=== PATIENT | female | born 1980 | race Caucasian/White ===

== ENCOUNTER 2023-02-15 14:09 | Emergency (ER) | payer OTHER, SELFPAY ==
[2023-02-15] VITALS (12 sets, daily range): BP systolic 124–158; BP diastolic 82–105; PULSE 69–86; RESP 13–22; TEMP 36.6; O2SAT 97–100
--- NOTE | ~2023-02-15 | CT_ITS ---
EXAMINATION: CT brain wo con DATE: 02/15/2023 15:39 INDICATION: seizure . TECHNIQUE: Computed tomography (CT) of the head was performed without intravenous contrast. The mA wa s adjusted according to patient size. Iterative reconstruction technique was employed. The dose-lengt h product was 605.33 mGy-cm. COMPARISON: None. FINDINGS: No acute intracranial hemorrhage or extra-axial fluid collection. No hydrocephalus, mass, or herniation. No acute ischemic infarct. Unremarkable dural venous sinus attenuation. No acute osseous abnormality. Retention cyst or polyp in the right anterior ethmoid air cells, small focus of aerated secretions in the left anterior ethmoid air cells, the remaining aerated spaces are clear. IMPRESSION: No acute intracranial process. Reviewed, dictated and finalized at location K.
[2023-02-15 15:33] LABS: Basophils Percent Auto 0.2 % (0.2-1.2); Eosinophils Percent Auto 0.1 % (0-4.4); Hematocrit 38.4 % (37.0-47.0); Hemoglobin 13.2 g/dL (12.0-15.0); Immature Granulocyte Absolute 0.03 K/mm3 (0.00-0.031); Immature Granulocyte Percent A 0.3 % (0-0.5); Lymphocytes Absolute Auto 0.62 K/mm3 (0.9-3.2); Lymphocytes Percent Auto 6.3 % (18.3-44.2); Mean Corpuscular HGB Conc 34.4 g/dl (32-36); Mean Corpuscular Hemoglobin 36.1 pg (26-34); Mean Corpuscular Volume 104.9 fl (80-100); Monocytes Absolute Auto 0.4 K/mm3 (0.1-0.6); Monocytes Percent Auto 4.3 % (2.6-8.5); Neutrophils Absolute Auto 8.7 K/mm3 (1.3-6.7); Neutrophils Percent Auto 88.8 % (45.5-73.1); Platelet Count Result 121 k/mm3 (150-375); Red Blood Count 3.66 M/mm3 (4.2-5.4); Red Cell Distribution Width 12.8 % (11.5-14.5); White Blood Count 9.8 K/mm3 (4.5-10.0)
[2023-02-15 15:44] LABS: Alanine Aminotransferase 185 U/L (6-35); Albumin Level 4.8 g/dL (3.5-5.1); Alkaline Phosphatase 83 U/L (38-126); Anion Gap 10 mmol/L (8-16); Aspartate Amino Transferase 257 U/L (14-36); Bilirubin,Total 1.1 mg/dL (0.2-1.3); Blood Urea Nitrogen 11 mg/dL (7-17); Calcium 9.1 mg/dL (8.4-10.2); Carbon Dioxide 24 mmol/L (22-30); Chloride 101 mmol/L (98-107); Estimated CRCL calculation 108 ml/min; Estimated Glomerular Filt Rate > 60; Glucose 113 mg/dL (65-110); Potassium 3.7 mmol/L (3.4-5.0); Sodium 135 mmol/L (137-145)
[2023-02-15] MEDS: ONDANSETRON INJ 4 MG/2 ML VIAL IV PUSH (16:04)
--- NOTE | 2023-02-15 16:29 | ED.GENADULT ---
HPI - General Adult General Chief complaint: Seizure Stated complaint: Seizure Time Seen by Provider: 02/15/23 15:15 History of Present Illness HPI narrative: 42-year-old female presenting to the emergency department for evaluation of suspected seizure today. Patient states while she was riding in the car with her and the states that she had a 3 to 4-minute seizure with tonic-clonic activity. Patient does describe having a postictal period after the seizure during which she was confused. Patient denies any injury denies biting her tongue denies any loss of bowel or bladder control. Patient does report having emesis after the seizure and does complain of some nausea at this time. Patient reports she did have a seizure back in October on a plane flight back from [place]. Patient did have an outpatient EEG after that seizure and the EEG showed no epileptic activity. Patient did not have follow-up with neurology after that EEG. Patient reports he has been eating and drinking well, denies any depression. Denies any new medications. Related Data Allergies Allergy/AdvReac Type Severity Reaction Status Date / Time Penicillins Allergy Hives Verified 02/15/23 14:10 Review of Systems Review of Systems: All systems reviewed & are unremarkable except as noted in HPI and below Exam Narrative: APPEARANCE: Well appearing, no pain, no distress, well-nourished. HEAD: normocephalic, atraumatic. EYES: PERRLA/EOMI, conjunctivae clear. NOSE: Normal no drainage EARS:TMS clear with good light reflex. THROAT: Pharynx clear, no exudate. NECK: Supple. No adenopathy, no masses. RESPIRATORY: Airway patent, respirations nonlabored. Clear to auscultation bilaterally, no rales, rhonchi, wheezing. CARDIOVASCULAR: Regular rate and rhythm without murmurs rubs or gallops. ABDOMINAL: Soft, nontender, nondistended, normal bowel sounds MUSCULOSKELETAL: Moves all extremities. Strength/ROM intact, No edema, No calf tenderness. NEURO: Alert. Cranial nerves II through XII intact. Grossly intact SKIN: Warm, dry. Normal Color Course Course Emergency Course: 42-year-old female presented to ED for a suspected second seizure. Patient is afebrile with no leukocytosis. Patient's hemoglobin is within normal limits. Patient's CMP is also within normal limits. Patient does have minor elevation of AST and ALT. Patient's head CT was negative. Case was discussed with Dr. Андрей castro for neurology and she was comfortable with the plan for starting the patient on Keppra. She recommended doing a 1 g IV load while in the ED and then tomorrow the patient can start 500 mg twice daily. Patient was provided seizure precautions. Patient was educated on reasons to return to the emergency department. Patient was encouraged of close follow-up with neurology as outpatient. All questions concerns were addressed and patient was well-appearing at time of discharge. Vital Signs Vital signs: Vital Signs Temperature 97.9 F 02/15/23 14:36 Pulse Rate 75 02/15/23 14:36 Respiratory Rate 16 02/15/23 14:36 Blood Pressure 158/105 H 02/15/23 14:36 Pulse Oximetry 100 02/15/23 14:36 Oxygen Delivery Room Air 02/15/23 14:36 Temperature 97.9 F 02/15/23 14:36 Pulse Rate 75 02/15/23 17:58 Respiratory Rate 20 02/15/23 16:46 Blood Pressure 124/84 02/15/23 17:58 Pulse Oximetry 99 02/15/23 17:58 Oxygen Delivery Room Air 02/15/23 14:36 Medical Decision Making Differential Diagnosis Differential Diagnosis: Seizure, seizure-like activity Vital Signs Vital Signs: Vital Signs Temperature 97.9 F 02/15/23 14:36 Pulse Rate 75 02/15/23 14:36 Respiratory Rate 16 02/15/23 14:36 Blood Pressure 158/105 H 02/15/23 14:36 Pulse Oximetry 100 02/15/23 14:36 Oxygen Delivery Room Air 02/15/23 14:36 Temperature 97.9 F 02/15/23 14:36 Pulse Rate 75 02/15/23 17:58 Respiratory Rate 20 02/15/23 16:46 Blood Pressure 1
[2023-02-15] MEDS: levETIRAcetam 1000MG/NACL100ML 1,000 MG/100 ML BAG 400 MG IVPB (16:31)
[2023-02-15 16:38] LABS: Appearance Urine Cloudy (Clear); Bacteria Urine Rare /hpf; Bilirubin Urine Negative (Negative); Blood Urine Negative (Negative); Color Urine Yellow (Yellow); Glucose Urine UA Negative (Negative); Ketones Urine Trace mg/dL (Negative); Leukocyte Esterase Ur 1+ LEU/UL (Negative); Nitrate Urine Negative (Negative); Non Pathogenic Casts 0-2; Protein Urine 1+ mg/dL (Negative); RBC Urine 0-2 /hpf (0-2); Specific Grav Ur 1.019 (1.001-1.035); Squamous Epithelial Cell Urine Few /hpf (Few); Urobilinogen Urine 0.2 mg/dL (<2.0); pH Urine 7.5 (5.0-9.0)
[2023-02-15 16:39] LABS: Add Urine Microscopic? YES
[2023-02-15] MEDS: KETOROLAC 15 MG/ML VIAL (*BKC) IV PUSH (16:52)
== END 2023-02-15 18:00 | disposition home or self-care (01) ==
PROVIDERS: Emergency Provider Emergency Medicine
DX: R56.9 Unspecified convulsions (principal)
CPT/HCPCS: 36415; 70450; 80053; 81001; 85025; 87086; 87088; 96365; 96367; 96375; 99284; J0131; J1885; J1953; J2405

== ENCOUNTER 2023-04-08 09:50 | Outpatient (CLI) | payer OTHER, SELFPAY ==
--- NOTE | ~2023-04-08 | MR_ITS ---
EXAMINATION: MR brain/brain stem wo con DATE: 04/08/2023 11:29 INDICATION: Unspecified convulsions. TECHNIQUE: Magnetic resonance imaging (MRI) of the brain and brainstem was performed without intraven ous contrast. COMPARISON: Head CT 02/15/2023 FINDINGS: There is no intracranial hemorrhage, acute infarction, or abnormal intracranial mass lesion . The hippocampi are normal and symmetric. The ventricles are normal in size. There is mucosal thicke bethel in the paranasal sinuses. The orbits are normal. The mastoid air cells are normal. IMPRESSION: 1. Normal brain. Reviewed, dictated and finalized at location A. IMPRESSION: 1. Normal brain.
== END 2023-04-08 09:51 ==
LOC: GOSHIMG 09:54
PROVIDERS: PCP Psychiatry & Neurology Neurology; Visit Provider Psychiatry & Neurology Neurology
DX: R56.9 Unspecified convulsions (principal)
CPT/HCPCS: 70551

== ENCOUNTER 2024-01-19 16:39 | Emergency (ER) | payer MEDICAID, SELFPAY ==
[2024-01-19] VITALS (7 sets, daily range): BP systolic 129–146; BP diastolic 67–105; PULSE 81–100; RESP 13–20; TEMP 36.4; O2SAT 96–99
--- NOTE | ~2024-01-19 | CT_ITS ---
EXAMINATION: CT brain wo con DATE: 01/19/2024 16:59 INDICATION: Seizure. TECHNIQUE: Computed tomography (CT) of the head was performed without intravenous contrast. The mA wa s adjusted according to patient size. Iterative reconstruction technique was employed. The dose-lengt h product was 681.00 mGy-cm. COMPARISON: Brain MRI 04/08/2023 FINDINGS: There is no intracranial hemorrhage, acute infarction, or abnormal intracranial mass lesion . The ventricles are normal in size. There is a left-sided scalp hematoma. There is mild mucosal thic kening in the paranasal sinuses. The mastoid air cells are hypoplastic. The orbits are normal. IMPRESSION: 1. Normal brain. Reviewed, dictated and finalized at location E. IMPRESSION: 1. Normal brain.
--- NOTE | 2024-01-19 16:42 | ECG_ITS ---
SEE SCANNED COPY FOR CONFIRMED REPORT MTDD
--- NOTE | 2024-01-19 16:52 | PC.NURSE ---
Pt taken to CT at this time
--- NOTE | 2024-01-19 17:14 | PC.NURSE ---
Pt c/o headache and nausea. MD made aware. VORB for 4 mg morphine and 4 mg zofran IVP stat.
[2024-01-19 17:15] LABS: Basophils Percent Auto 0.6 % (0.2-1.2); Eosinophils Absolute Auto 0.1 K/mm3 (0-0.3); Eosinophils Percent Auto 0.9 % (0-4.4); Hematocrit 36.9 % (37.0-47.0); Hemoglobin 12.6 g/dL (12.0-15.0); Immature Granulocyte Absolute 0.04 K/mm3 (0.00-0.031); Immature Granulocyte Percent A 0.7 % (0-0.5); Lymphocytes Absolute Auto 1.32 K/mm3 (0.9-3.2); Lymphocytes Percent Auto 24.4 % (18.3-44.2); Mean Corpuscular HGB Conc 34.1 g/dl (32-36); Mean Corpuscular Hemoglobin 35.1 pg (26-34); Mean Corpuscular Volume 102.8 fl (80-100); Mean Platelet Volume 10.2 fl (7.4-10.4); Monocytes Absolute Auto 0.4 K/mm3 (0.1-0.6); Monocytes Percent Auto 7.9 % (2.6-8.5); Neutrophils Absolute Auto 3.6 K/mm3 (1.3-6.7); Neutrophils Percent Auto 65.5 % (45.5-73.1); Platelet Count Result 105 k/mm3 (150-375); Red Blood Count 3.59 M/mm3 (4.2-5.4); Red Cell Distribution Width 11.9 % (11.5-14.5); White Blood Count 5.4 K/mm3 (4.5-10.0)
[2024-01-19] MEDS: ONDANSETRON INJ 4 MG/2 ML VIAL IV PUSH (17:20)
[2024-01-19] MEDS: MORPHINE SULFATE (*CRX) 4 MG/ML INJ IV PUSH (17:22)
[2024-01-19 17:25] LABS: Alanine Aminotransferase 197 U/L (6-35); Albumin Level 4.3 g/dL (3.5-5.1); Alkaline Phosphatase 107 U/L (38-126); Anion Gap 13 mmol/L (4-12); Aspartate Amino Transferase 432 U/L (14-36); Bilirubin,Total 0.8 mg/dL (0.2-1.3); Blood Urea Nitrogen 10 mg/dL (7-17); Calcium 9.1 mg/dL (8.4-10.2); Carbon Dioxide 17 mmol/L (22-30); Chloride 105 mmol/L (98-107); Estimated CRCL calculation 121 ml/min; Estimated Glomerular Filt Rate > 60; Glucose 109 mg/dL (65-110); Sodium 135 mmol/L (137-145)
[2024-01-19] MEDS: levETIRAcetam 1000MG/NACL100ML 1,000 MG/100 ML BAG 400 MG IVPB (17:50)
--- NOTE | 2024-01-19 19:26 | PC.NURSE ---
Pt still c/o HA. LOPEZ made aware. VORB for 15mg Toradol IVP stat.
[2024-01-19] MEDS: KETOROLAC 15 MG/ML VIAL (*BKC) IV PUSH (19:31)
--- NOTE | 2024-01-19 20:16 | ED.SEIZURE ---
HPI - Seizure General Chief Complaint: Seizure Stated Complaint: SZ Time Seen by Provider: 01/19/24 16:40 Source: patient and EMS Mode of arrival: EMS Limitations: altered mental status History of Present Illness HPI Narrative: 43-year-old with a history of seizure disorder on Keppra was brought in from work with the complaints of having the seizure activity. Patient according to EMS was in a postictal state and was confused initially. Upon arrival patient was complaining of headache . she denies having any chest pain or shortness of breath. Patient states that she had 3 seizures last year and she is compliant with medication complaint: seizure Onset (ago): minute(s) (30) Description of Episode: tonic-clonic movement Witnessed: Yes - by Other ( at work place) Trauma: No Seizure History: Yes Place: work Possible Precipitating Event: none Associated symptoms: denies other symptoms Treatments prior to arrival: none Related Data Home Medications Medication Instructions Recorded Confirmed dextroamphetamine-amphetamine 20 20 mg PO DAILY 03/24/23 mg tablet (Adderall) spironolactone 50 mg tablet 50 mg PO DAILY 03/24/23 triamterene 37.5 1 tablet PO QAM 03/24/23 mg-hydrochlorothiazide 25 mg tablet Allergies Allergy/AdvReac Type Severity Reaction Status Date / Time Penicillins Allergy Hives Verified 03/24/23 10:43 Review of Systems Review of Systems: All systems reviewed & are unremarkable except as noted in HPI and below Constitutional: Constitutional: Reports no additional constitutional complaints Eyes: Eyes: Reports no additional eye complaints ENT: Reports system reviewed and no additional complaints, except as documented Cardiovascular: Cardiovascular: Reports no additional cardiovascular complaints Respiratory: Respiratory: Reports no additional respiratory complaints Gastrointestinal: Gastrointestinal: Reports no additional gastrointestinal complaints Musculoskeletal: Musculoskeletal: Reports no additional musculoskeletal complaints Neurologic: Reports headache(s) Psychiatric: Psychiatric: Reports no additional psychiatric complaints Endocrine: Endocrine: Reports no additional endocrine complaints [facility] Social History Social History Smoking status: Unknown if ever smoked Alcohol intake: current Alcohol use details: Glass of wine Substance use: never Substance use type: does not use Lack of Transportation: YES Lack of Food: Never True Current Housing: I Have Housing Concerned About Future Housing: No Difficulty Paying Gas/Electric Bills: No Difficulty Paying for Meds: No Currently Unemployed: No Education: Associate Degree Difficulty w/ Childcare or Family Care: No Living arrangements: with family Gender identity (if verbalized by the patient): Female Exam Narrative: GENERAL: Well-appearing, well-nourished, and in no acute distress. HEAD: Normocephalic, atraumatic. EYES: PERRLA and EOMI. ENT: Nares clear, no rhinorrhea or epistaxis. Mucous membranes moist. NECK: Supple. CHEST: Clear to auscultation. No respiratory distress. HEART: Regular rate and rhythm. No murmur heard. Normal peripheral pulses. ABDOMEN: Soft, nontender, nondistended, normal active bowel sounds. EXTREMITIES: Normal range of motion. No edema. SKIN: Warm, dry, no rash. NEURO: No focal deficits. Alert and oriented x3. PSYCH: Normal mood and affect. Course Course Emergency Course: patient complaining of headache of did give her pain medication and IV Toradol as well as pain is is slightly improved but still has pain I informed about her lab work and CT findings. Recommended her to follow up with her neurologist continue home medication. Advised no driving until she has okayed by her neurologist . Vital Signs Vital signs: Vital Signs Temperature 36.4 C L 01/19/24 16:39 Pulse Rate 81 01/19/24 16:39 Resp
[2024-01-21 11:18] LABS: Levetiracetam Keppra <2.0 mcg/mL (6.0-46.0)
== END 2024-01-19 20:49 | disposition home or self-care (01) ==
PROVIDERS: Emergency Provider Family Medicine; PCP Psychiatry & Neurology Neurology
DX: G40.909 Epilepsy, unspecified, not intractable, without status epilepticus (principal)
CPT/HCPCS: 36415; 70450; 80053; 80177; 85025; 93005; 96365; 96375; 99284; J1885; J1953; J2270; J2405

== ENCOUNTER 2024-03-11 14:03 | Emergency (ER) | payer MEDICAID, SELFPAY ==
--- NOTE | ~2024-03-11 | XR_ITS ---
XR chest 1V portable Ordering provider: Derrek Jorge MD History: 43 years Female with . Seizure . Comparison: None. FINDINGS: MEDIASTINUM: The cardiac silhouette is not enlarged. LUNGS: No infiltrates, effusions or pneumothorax. OTHER: No free air under the diaphragm. IMPRESSION: No acute cardiopulmonary pathology. Reviewed, dictated and finalized at location A.
[2024-03-11 14:15] VITALS: BP 195/110; PULSE 72; RESP 20; TEMP 36.3; O2SAT 98
--- NOTE | 2024-03-11 14:26 | ECG_ITS ---
[facility] [address] Test Date: 2024-03-11 Pat Name: Dinorah Vega Department: Room: Gender: F Public Relations Director: : 1980 Requested By: Derrek Tobias Order Number: [id number] Terrance MD: Vic Medrano M.D. Measurements Intervals [place] Rate: 70 P: 32 NV: 148 QRS: 16 QRSD: 80 T: 27 QT: 454 QTc: 492 Interpretive Statements SINUS RHYTHM PROLONGED QT INTERVAL OTHERWISE NORMAL ECG No previous ECG available for comparison Electronically Signed On 03-12-2024 07:56:30 CDT by Vic Medrano M.D.
--- NOTE | 2024-03-11 14:55 | ED.GENADULT ---
HPI - General Adult General Chief complaint: Seizure Stated complaint: altered mental status/ seizure? Time Seen by Provider: 03/11/24 14:22 History of Present Illness HPI narrative: this is a 43-year-old female with a history of epilepsy was noncompliant with her seizure medication presenting for a seizure. Patient believes that she had a seizure overnight. She bit her tongue and there was some blood on the pillow when she woke up. She also has aching in her legs which is normal for her after seizure. Patient says she stopped taking her Keppra because she ran out. patient denies headache, fevers chills nausea vomiting diarrhea abdominal pain or urinary symptoms. Related Data Allergies Allergy/AdvReac Type Severity Reaction Status Date / Time Penicillins Allergy Hives Verified 02/22/24 12:28 [facility] Past Medical History Medical History BMI 27.0-27.9,adult Fracture, cervical vertebra Family History Family History Father Hyperlipidemia Family history of brain aneurysm Mother Dementia Family history of brain aneurysm Sibling , Onset Age: 18 MVC Sibling No problems noted. Social History Social History Smoking status: Former smoker Tobacco type: cigarettes Second hand tobacco smoke exposure: Yes Alcohol intake: former Alcohol use details: Glass of wine. Not since having a seizure. Substance use: never Substance use type: does not use Do You Feel Safe in your Home?: Yes Lack of Transportation: YES Lack of Food: Never True Current Housing: I Have Housing Concerned About Future Housing: No Difficulty Paying Gas/Electric Bills: No Difficulty Paying for Meds: No Currently Unemployed: No Education: Associate Degree Difficulty w/ Childcare or Family Care: No Living arrangements: with family Occupation/Education: occupation Additional occupation/education comments: [employer]. Gender identity (if verbalized by the patient): Female Exam Narrative: APPEARANCE: No apparent distress. Head: tongue and lip bite valadez Eyes: EOMI, [place] NOSE: Atraumatic NECK: Trachea midline RESPIRATORY: No increased rate of breathing CTAB CARDIOVASCULAR: RRR, ABDOMINAL: Non-distended MUSCULOSKELETAl: No obvious deformities NEURO: Alert. Cranial nerves 2-12 grossly intact. Sensation light touch, motor function cerebellar function intact for 4 extremities. Gait exam was normal. SKIN:: Warm, dry. Normal color PSYCHIATRIC: Normal affect Course Vital Signs Vital signs: Vital Signs Temperature 97.4 F L 03/11/24 14:15 Pulse Rate 72 03/11/24 14:15 Respiratory Rate 20 03/11/24 14:15 Blood Pressure 195/110 H 03/11/24 14:15 Pulse Oximetry 98 03/11/24 14:15 Oxygen Delivery Room Air 03/11/24 14:15 Temperature 97.4 F L 03/11/24 14:15 Pulse Rate 75 03/11/24 17:01 Respiratory Rate 18 03/11/24 17:01 Blood Pressure 145/87 H 03/11/24 17:01 Pulse Oximetry 98 03/11/24 17:01 Oxygen Delivery Room Air 03/11/24 16:05 Medical Decision Making MDM Narrative Medical decision making narrative: -Course: 43-year-old female with a known diagnosis of epilepsy presenting after seizure. Patient meets to being noncompliant. workup showed possibly UTI. Patient be treated with antibiotics as infection can lower her seizure threshold.. She was loaded with Keppra given fluid resuscitation. Patient was evaluated return to her baseline mental status is feeling better. She is comfortable being discharged home and following up with Neurology. -DDX includes but is not limited to: Seizure disorder -Co-morbidities complicating care: Seizure disorder -Independent interpretation of studies: labs reviewed. hemoglobin 13.2 with an MCV of 104.6. Liver enzymes elevated in an alcohol a
[2024-03-11 15:06] LABS: Basophils Percent Auto 0.4 % (0.2-1.2); Hematocrit 38.8 % (37.0-47.0); Hemoglobin 13.2 g/dL (12.0-15.0); Immature Granulocyte Absolute 0.04 K/mm3 (0.00-0.031); Immature Granulocyte Percent A 0.5 % (0-0.5); Immature Platelet Fraction Pct 5.7 % (0.9-11.2); Lymphocytes Absolute Auto 0.75 K/mm3 (0.9-3.2); Lymphocytes Percent Auto 9.5 % (18.3-44.2); Mean Corpuscular Hemoglobin 35.6 pg (26-34); Mean Corpuscular Volume 104.6 fl (80-100); Mean Platelet Volume 10.7 fl (7.4-10.4); Monocytes Absolute Auto 0.4 K/mm3 (0.1-0.6); Monocytes Percent Auto 5.3 % (2.6-8.5); Neutrophils Absolute Auto 6.7 K/mm3 (1.3-6.7); Neutrophils Percent Auto 84.3 % (45.5-73.1); Platelet Count Result 135 k/mm3 (150-375); Red Blood Count 3.71 M/mm3 (4.2-5.4); Red Cell Distribution Width 12.4 % (11.5-14.5); White Blood Count 7.9 K/mm3 (4.5-10.0)
[2024-03-11 15:13] LABS: Alanine Aminotransferase 128 U/L (6-35); Albumin Level 4.8 g/dL (3.5-5.1); Alkaline Phosphatase 92 U/L (38-126); Anion Gap 11 mmol/L (4-12); Aspartate Amino Transferase 259 U/L (14-36); Blood Urea Nitrogen 11 mg/dL (7-17); Calcium 9.4 mg/dL (8.4-10.2); Carbon Dioxide 20 mmol/L (22-30); Chloride 102 mmol/L (98-107); Estimated CRCL calculation 93 ml/min; Estimated Glomerular Filt Rate > 60; Glucose 150 mg/dL (65-110); Potassium 3.9 mmol/L (3.4-5.0); Sodium 133 mmol/L (137-145)
[2024-03-11] MEDS: levETIRAcetam 1500MG/NACL100ML 1,500 MG/100 ML BAG 400 MG IVPB (15:22)
[2024-03-11] MEDS: SODIUM CHLORIDE 0.9% IV 2,000 ML 999 ML IV CONT (15:23)
[2024-03-11 15:41] LABS: Influenza A QL RT-PCR Negative (Negative); Influenza B QL RT-PCR Negative (Negative); Magnesium 1.6 mg/dL (1.6-2.3); RSV RNA, RT-PCR Negative (Negative); SARS-CoV-2 RNA PCR Negative (Negative)
[2024-03-11 15:44] LABS: Ethanol < 10 mg/dL (<10)
[2024-03-11] MEDS: ONDANSETRON INJ 4 MG/2 ML VIAL IV PUSH (15:52)
[2024-03-11 16:07] VITALS: BP 155/78; PULSE 75; RESP 16; O2SAT 98
[2024-03-11 16:11] LABS: Glucose Point of Care 118 mg/dl (65-105)
[2024-03-11 17:01] VITALS: BP 145/87; PULSE 75; RESP 18; O2SAT 98
[2024-03-11 17:08] LABS: Appearance Urine Cloudy (Clear); Bacteria Urine 3+ /hpf; Bilirubin Urine Negative (Negative); Blood Urine Negative (Negative); Color Urine Yellow (Yellow); Glucose Urine UA Negative (Negative); Ketones Urine 1+ mg/dL (Negative); Leukocyte Esterase Ur 1+ LEU/UL (Negative); Nitrate Urine Negative (Negative); Non Pathogenic Casts 0-2; Protein Urine 1+ mg/dL (Negative); RBC Urine 0-2 /hpf (0-2); Squamous Epithelial Cell Urine Moderate /hpf (Few); pH Urine 8.5 (5.0-9.0)
[2024-03-11 17:13] LABS: Add Urine Microscopic? YES
[2024-03-11 18:17] LABS: Amphetamine Screen Urine Negative (Negative); Barbiturate Screen Urine Negative (Negative); Benzodiazepines Screen Urine Negative (Negative); Cannabinoid Screen Urine Negative (Negative); Cocaine Screen Urine Negative (Negative); Methadone Screen Urine Negative (Negative); Opiate Screen Urine Negative (Negative); Phencyclidine Screen Urine Negative (Negative)
[2024-03-11] MEDS: SULFAMETHOXAZOLE/TRIMETHOPRIM 800/160 MG DS TABLET 1 TAB PO (18:22)
== END 2024-03-11 18:29 | disposition home or self-care (01) ==
PROVIDERS: Emergency Provider Emergency Medicine
DX: G40.909 Epilepsy, unspecified, not intractable, without status epilepticus (principal); N39.0 Urinary tract infection, site not specified; Z91.148 Patient's other noncompliance with medication regimen for other reason; Z20.822 Contact with and (suspected) exposure to COVID-19
CPT/HCPCS: 36415; 71045; 80053; 80307; 81001; 82948; 83735; 85025; 85055; 87086; 87088; 87637; 93005; 96365; 96366; 96375; 99284; A9270; J1953; J2405; J7030

== ENCOUNTER 2024-08-16 14:21 | Emergency (ER) | payer BC, SELFPAY ==
--- NOTE | ~2024-08-16 | XR_ITS ---
EXAMINATION: XR chest 2V DATE: 08/16/2024 15:09 INDICATION: 3 weeks of chest pain TECHNIQUE: PA and lateral views of the chest were obtained. COMPARISON: Chest radiograph dated 03/11/2024 FINDINGS: The lungs are clear with no focal airspace opacities, pulmonary edema, pleural effusion or pneumothor ax. The cardiomediastinal silhouette is normal. Mild thoracic dextrocurvature with mild spondylosis. Anterior plate-screw fixation and right sided plate and lateral mass screw fixation for likely combin ed lower cervical instrumented anterior and posterior spinal fusion. IMPRESSION: 1. No acute cardiopulmonary disease. Reviewed, dictated and finalized at location B. OR DATA ANALYST
--- NOTE | 2024-08-16 14:24 | ECG_ITS ---
Test Date: 2024-08-16 14:29:22 Measurements Intervals [place] Rate: 79 P: 64 [place]: 163 QRS: 38 QRSD: 79 T: 42 QT: 385 QTc: 443 Interpretive Statements SINUS RHYTHM WITH SINUS ARRHYTHMIA NORMAL ECG Compared to ECG 03/11/2024 14:12:49 Prolonged QT interval no longer present Electronically Signed On 08-16-2024 14:54:26 [employer]AL SPRAYING MACHINE OPERATOR by Yonatan Goldsmith D.O.
[2024-08-16 14:25] VITALS: BP 155/110; PULSE 103; RESP 17; TEMP 36.5; O2SAT 98
--- NOTE | 2024-08-16 14:32 | PC.NURSE ---
explained to pt that we will need obtain lab work. pt states I don't want that educated pt on importance of lab work. pt still refusing. pt ambulated back to waiting area with steady gait.
--- NOTE | 2024-08-16 14:40 | ED.CHESTPAIN ---
HPI - Chest Pain General Chief Complaint: Chest Pain <Myrna Christianson PA-C - Last Filed: 08/17/24 09:33> Stated Complaint: chest pain? <Myrna Christianson PA-C - Last Filed: 08/17/24 09:33> Time Seen by Provider: 08/16/24 14:40 <Myrna Christianson PA-C - Last Filed: 08/17/24 09:33> Focused HPI: This is a 44 year old female that presents to the ER for chest pain. Reports recent pneumonia diagnosis. She finished Levofloxacin for this. Reports it feels like her lungs are burning. Reports shortness of breath and cough. Denies fever. GENERAL: Well-appearing, well-nourished, and in no acute distress. HEAD: Normocephalic, atraumatic. CHEST: Clear to auscultation. ?No respiratory distress. HEART: Regular rate and rhythm.? NEURO: ?Alert and oriented x3. Patient screened in triage and initial orders placed.? ?Additional care and disposition to be based upon?diagnostic testing and treatment. <Myrna Christianson PA-C - Last Filed: 08/17/24 09:33> History of Present Illness HPI narrative: 44-year-old female with history of seizure disorder presents to emergency department for burning in her chest for approximately 4 weeks. 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 States she was 1st prescribed Medrol Dosepak and azithromycin without improvement, then completed a week course of Levaquin without improvement. Most recently she finished another round of Medrol Dosepak and azithromycin the past few days. States her symptoms have persisted so she came to the ED for further evaluation. She is reporting burning in the lower anterior aspect of her chest, worse when she takes a deep breath. She reports a dry cough and shortness of breath. Patient also notes that she had 2 shots of vodka prior to contacting EMS because her fiance broke up with her yesterday. States she normally does not drink daily. Patient is requesting medication for anxiety. She denies fever, lower extremity edema, hemoptysis, history of VTE, recent surgeries or hospitalizations. <Luba Stewart PA-C - Last Filed: 08/16/24 21:35> Related Data Allergies/Adverse Reactions: Allergies Allergy/AdvReac Type Severity Reaction Status Date / Time Penicillins Allergy Hives Verified 08/16/24 14:23 <Myrna Christianson PA-C - Last Filed: 08/17/24 09:33> Review of Systems Review of Systems: All systems reviewed & are unremarkable except as noted in HPI and below <Luba Stewart PA-C - Last Filed: 08/16/24 21:35> PMFSH Past Medical History Medical History: Medical History BMI 27.0-27.9,adult Fracture, cervical vertebra <Myrna Christianson PA-C - Last Filed: 08/17/24 09:33> Family History Family History: Family History Father Hyperlipidemia Family history of brain aneurysm Mother Dementia Family history of brain aneurysm Sibling , Onset Age: 18 MVC Sibling No problems noted. <Myrna Christianson PA-C - Last Filed: 08/17/24 09:33> Social History Social History: Social History Smoking status: Former smoker Tobacco type: cigarettes Second hand tobacco smoke exposure: Yes Alcohol intake: former Alcohol use details: Glass of wine. Not since having a seizure. Substance use: never Substance use type: does not use Do You Feel Safe in your Home?: Yes Lack of Transportation: YES Lack of Food: Never True Current Housing: I Have Housing Concerned About Future Housing: No Difficulty Paying Gas/Electric Bills: No Difficulty Paying for Meds: No Currently Unemployed: No Education: Associate Degree Difficulty w/ Childcare or Family Care: No Living arrangements: with family Occupation/Education: occupation Additional occupation/education comments: [employer]. Gender identity (if verbalized by the patient): Female <Myrna Christianson PA-C - Last Filed: 08/17/24 09:33> Exam Narrative: GENERAL: Well-appearing, well-nourished, and in no acute distress. HEAD: Normocephalic, atraumatic. EYES: PERRLA and EOMI. ENT: Nares clear, no rhinorrhea or epistaxis. Mucous membranes moist. NECK: Supple. CHEST: Clear to auscultation. No respiratory distress. HEART: Regular rate and rhythm. No murmur heard. Normal peripheral pulses. ABDOMEN: Soft, nontender, nondistended, normal active bowel sounds. EXTREMITIES: Normal range of motion. No edema. SKIN: Warm, dry, no rash. NEURO: No focal deficits. Alert and oriented x3 <JOSE Olea Last Filed: 08/16/24 21:35> Course Vital Signs Vital signs: Vital Signs Temperature 97.7 F 08/16/24 14:25 Pulse Rate 103 H 08/16/24 14:25 Respiratory Rate 17 08/16/24 14:25 Blood Pressure 155/110 H 08/16/24 14:25 Pulse Oximetry 98 08/16/24 14:25 Oxygen Delivery Room Air 08/16/24 14:25 Temperature 97.7 F 08/16/24 14:25 Pulse Rate 75 08/16/24 21:53 Respiratory Rate 15 08/16/24 21:53 Blood Pressure 128/84 08/16/24 21:53 Pulse Oximetry 99 08/16/24 21:53 Oxygen Delivery Room Air 08/16/24 18:07 <JOSE Mane Last Filed: 08/17/24 09:33> Vital Signs Temperature 97.7 F 08/16/24 14:25 Pulse Rate 103 H 08/16/24 14:25 Respiratory Rate 17 08/16/24 14:25 Blood Pressure 155/110 H 08/16/24 14:25 Pulse Oximetry 98 08/16/24 14:25 Oxygen Delivery Room Air 08/16/24 14:25 Temperature 97.7 F 08/16/24 14:25 Pulse Rate 75 08/16/24 21:53 Respiratory Rate 15 08/16/24 21:53 Blood Pressure 128/84 08/16/24 21:53 Pulse Oximetry 99 08/16/24 21:53 Oxygen Delivery Room Air 08/16/24 18:07 <JOSE Olea Last Filed: 08/16/24 21:35> MDM - Chest Pain MDM Narrative Medical decision making narrative: 44-year-old female history seizure disorder presents emergency department for chest pain, cough and anxiety. See HPI for further history. Vitals are stable. She is afebrile nontoxic appearing. Exam significant for the above. CBC without leukocytosis or anemia. Chemistries with chronic elevations in AST and ALT consistent with alcohol pattern. COVID, flu RSV are negative. Chest x-ray shows no acute cardiopulmonary findings. EKG shows sinus rhythm with sinus arrhythmia, normal OR interval, normal QRS duration, normal QTC, no ischemic changes. Troponin is undetectable x2. D-dimer normal limits, wells score is low risk. Lipase is normal. Patient denies workup. She received hydroxyzine with improvement. Patient was monitored in the emergency department for 7 hours and appears clinically sober. Suspect symptoms are secondary to bronchitis and pleurisy with concurrent anxiety. Will provide Tessalon Perle and hydroxyzine. Will refrain from NSAIDs for pleurisy/bronchitis given concern for ETOH abuse. I did consider steroids but will refrain as patient has been on several rounds of steroids in the past month. Will have her take tylenol. Advised follow-up with her PCP. Discussed strict ED return precautions. She is agreeable to plan verbalized understanding. Discharged in stable condition. <Luba Stewart PA-C - Last Filed: 08/16/24 21:35> Lab Data Result diagrams: 08/16/24 18:10 08/16/24 18:10 <Myrna Christianson PA-C - Last Filed: 08/17/24 09:33> Labs: Lab Results 08/16/24 08/16/24 08/16/24 Range/Units 18:10 18:10 19:38 WBC 4.6 (4.5-10.0) K/mm3 RBC 4.40 (4.2-5.4) M/mm3 Hgb 14.3 (12.0-15.0) g/dL Hct 41.6 (37.0-47.0) % MCV 94.5 (80-100) fl MCH 32.5 (26-34) pg MCHC 34.4 (32-36) g/dl RDW 12.7 (11.5-14.5) % Plt Count 136 L (150-375) k/mm3 MPV 9.9 (7.4-10.4) fl Immature Gran % (Auto) 0.0 (0-0.5) % Neut % (Auto) 43.0 L (45.5-73.1) % Lymph % (Auto) 51.3 H (18.3-44.2) % [place] % (Auto) 4.6 (2.6-8.5) % Eos % (Auto) 0.7 (0-4.4) % Baso % (Auto) 0.4 (0.2-1.2) % Lymph # (Auto) 2.36 (0.9-3.2) K/mm3 [place] # (Auto) 0.2 (0.1-0.6) K/mm3 Eos # (Auto) 0.0 (0-0.3) K/mm3 Baso # (Auto) 0.0 (0.0-0.1) K/mm3 Abs Immat Gran (auto) 0.00 (0.00-0.031) K/mm3 Absolute Neuts (auto) 2.0 (1.3-6.7) K/mm3 Absolute Nucleated RBC 0.000 (0.0-0.012) K/mm3 Nucleated RBC % 0.0 (0.0-0.2) % % Immature Plt Fraction 3.6 (0.9-11.2) % PT 14.0 (11.1-14.7) Seconds INR 1.0 APTT 25.8 (22.3-36.8) Seconds D-Dimer 0.44 Cancelled (<0.48) ug/mL Sodium 141 (137-145) mmol/L Potassium 3.8 (3.4-5.0) mmol/L Chloride 104 (98-107) mmol/L Carbon Dioxide 25 (22-30) mmol/L Anion Gap 12 (4-12) mmol/L BUN 11 (7-17) mg/dL Creatinine 0.70 (0.7-1.0) mg/dL Estim Creat Clear Calc 92 ml/min Estimated GFR > 60 (59 - ) Glucose 139 H (65-110) mg/dL Calcium 8.6 (8.4-10.2) mg/dL Total Bilirubin 0.7 (0.2-1.3) mg/dL AST 298 H (14-36) U/L ALT 195 H (6-35) U/L Alkaline Phosphatase 63 (38-126) U/L Troponin I < 0.012 < 0.012 (0.000-0.034) ng/mL Total Protein 9.0 H (6.3-8.2) g/dL Albumin 5.0 (3.5-5.1) g/dL Lipase 129 (23-300) U/L Influenza A (RT-PCR) (Negative) Influenza B (RT-PCR) (Negative) RSV (RT-PCR) (Negative) SARS-CoV-2 RNA (RT-PCR) (Negative) 08/16/24 08/16/24 Range/Units 20:02 20:51 WBC (4.5-10.0) K/mm3 RBC (4.2-5.4) M/mm3 Hgb (12.0-15.0) g/dL Hct (37.0-47.0) % MCV (80-100) fl MCH (26-34) pg MCHC (32-36) g/dl RDW (11.5-14.5) % Plt Count (150-375) k/mm3 MPV (7.4-10.4) fl Immature Gran % (Auto) (0-0.5) % Neut % (Auto) (45.5-73.1) % Lymph % (Auto) (18.3-44.2) % [place] % (Auto) (2.6-8.5) % Eos % (Auto) (0-4.4) % Baso % (Auto) (0.2-1.2) % Lymph # (Auto) (0.9-3.2) K/mm3 [place] # (Auto) (0.1-0.6) K/mm3 Eos # (Auto) (0-0.3) K/mm3 Baso # (Auto) (0.0-0.1) K/mm3 Abs Immat Gran (auto) (0.00-0.031) K/mm3 Absolute Neuts (auto) (1.3-6.7) K/mm3 Absolute Nucleated RBC (0.0-0.012) K/mm3 Nucleated RBC % (0.0-0.2) % % Immature Plt Fraction (0.9-11.2) % PT (11.1-14.7) Seconds INR APTT (22.3-36.8) Seconds D-Dimer (<0.48) ug/mL Sodium (137-145) mmol/L Potassium (3.4-5.0) mmol/L Chloride (98-107) mmol/L Carbon Dioxide (22-30) mmol/L Anion Gap (4-12) mmol/L BUN (7-17) mg/dL Creatinine (0.7-1.0) mg/dL Estim Creat Clear Calc ml/min Estimated GFR (59 - ) Glucose (65-110) mg/dL Calcium (8.4-10.2) mg/dL Total Bilirubin (0.2-1.3) mg/dL AST (14-36) U/L ALT (6-35) U/L Alkaline Phosphatase (38-126) U/L Troponin I < 0.012 (0.000-0.034) ng/mL Total Protein (6.3-8.2) g/dL Albumin (3.5-5.1) g/dL Lipase (23-300) U/L Influenza A (RT-PCR) Negative (Negative) Influenza B (RT-PCR) Negative (Negative) RSV (RT-PCR) Negative (Negative) SARS-CoV-2 RNA (RT-PCR) Negative (Negative) <Myrna Christianson PA-C - Last Filed: 08/17/24 09:33> Lab Results 08/16/24 08/16/24 08/16/24 Range/Units 18:10 18:10 19:38 WBC 4.6 (4.5-10.0) K/mm3 RBC 4.40 (4.2-5.4) M/mm3 Hgb 14.3 (12.0-15.0) g/dL Hct 41.6 (37.0-47.0) % MCV 94.5 (80-100) fl MCH 32.5 (26-34) pg MCHC 34.4 (32-36) g/dl RDW 12.7 (11.5-14.5) % Plt Count 136 L (150-375) k/mm3 MPV 9.9 (7.4-10.4) fl Immature Gran % (Auto) 0.0 (0-0.5) % Neut % (Auto) 43.0 L (45.5-73.1) % Lymph % (Auto) 51.3 H (18.3-44.2) % [place] % (Auto) 4.6 (2.6-8.5) % Eos % (Auto) 0.7 (0-4.4) % Baso % (Auto) 0.4 (0.2-1.2) % Lymph # (Auto) 2.36 (0.9-3.2) K/mm3 [place] # (Auto) 0.2 (0.1-0.6) K/mm3 Eos # (Auto) 0.0 (0-0.3) K/mm3 Baso # (Auto) 0.0 (0.0-0.1) K/mm3 Abs Immat Gran (auto) 0.00 (0.00-0.031) K/mm3 Absolute Neuts (auto) 2.0 (1.3-6.7) K/mm3 Absolute Nucleated RBC 0.000 (0.0-0.012) K/mm3 Nucleated RBC % 0.0 (0.0-0.2) % % Immature Plt Fraction 3.6 (0.9-11.2) % PT 14.0 (11.1-14.7) Seconds INR 1.0 APTT 25.8 (22.3-36.8) Seconds D-Dimer 0.44 Cancelled (<0.48) ug/mL Sodium 141 (137-145) mmol/L Potassium 3.8 (3.4-5.0) mmol/L Chloride 104 (98-107) mmol/L Carbon Dioxide 25 (22-30) mmol/L Anion Gap 12 (4-12) mmol/L BUN 11 (7-17) mg/dL Creatinine 0.70 (0.7-1.0) mg/dL Estim Creat Clear Calc 92 ml/min Estimated GFR > 60 (59 - ) Glucose 139 H (65-110) mg/dL Calcium 8.6 (8.4-10.2) mg/dL Total Bilirubin 0.7 (0.2-1.3) mg/dL AST 298 H (14-36) U/L ALT 195 H (6-35) U/L Alkaline Phosphatase 63 (38-126) U/L Troponin I < 0.012 < 0.012 (0.000-0.034) ng/mL Total Protein 9.0 H (6.3-8.2) g/dL Albumin 5.0 (3.5-5.1) g/dL Lipase 129 (23-300) U/L Influenza A (RT-PCR) (Negative) Influenza B (RT-PCR) (Negative) RSV (RT-PCR) (Negative) SARS-CoV-2 RNA (RT-PCR) (Negative) 08/16/24 08/16/24 Range/Units 20:02 20:51 WBC (4.5-10.0) K/mm3 RBC (4.2-5.4) M/mm3 Hgb (12.0-15.0) g/dL Hct (37.0-47.0) % MCV (80-100) fl MCH (26-34) pg MCHC (32-36) g/dl RDW (11.5-14.5) % Plt Count (150-375) k/mm3 MPV (7.4-10.4) fl Immature Gran % (Auto) (0-0.5) % Neut % (Auto) (45.5-73.1) % Lymph % (Auto) (18.3-44.2) % [place] % (Auto) (2.6-8.5) % Eos % (Auto) (0-4.4) % Baso % (Auto) (0.2-1.2) % Lymph # (Auto) (0.9-3.2) K/mm3 [place] # (Auto) (0.1-0.6) K/mm3 Eos # (Auto) (0-0.3) K/mm3 Baso # (Auto) (0.0-0.1) K/mm3 Abs Immat Gran (auto) (0.00-0.031) K/mm3 Absolute Neuts (auto) (1.3-6.7) K/mm3 Absolute Nucleated RBC (0.0-0.012) K/mm3 Nucleated RBC % (0.0-0.2) % % Immature Plt Fraction (0.9-11.2) % PT (11.1-14.7) Seconds INR APTT (22.3-36.8) Seconds D-Dimer (<0.48) ug/mL Sodium (137-145) mmol/L Potassium (3.4-5.0) mmol/L Chloride (98-107) mmol/L Carbon Dioxide (22-30) mmol/L Anion Gap (4-12) mmol/L BUN (7-17) mg/dL Creatinine (0.7-1.0) mg/dL Estim Creat Clear Calc ml/min Estimated GFR (59 - ) Glucose (65-110) mg/dL Calcium (8.4-10.2) mg/dL Total Bilirubin (0.2-1.3) mg/dL AST (14-36) U/L ALT (6-35) U/L Alkaline Phosphatase (38-126) U/L Troponin I < 0.012 (0.000-0.034) ng/mL Total Protein (6.3-8.2) g/dL Albumin (3.5-5.1) g/dL Lipase (23-300) U/L Influenza A (RT-PCR) Negative (Negative) Influenza B (RT-PCR) Negative (Negative) RSV (RT-PCR) Negative (Negative) SARS-CoV-2 RNA (RT-PCR) Negative (Negative) <Luba Stewart PA-C - Last Filed: 08/16/24 21:35> Imaging Data Radiologist's impression: ITS Impressions Chest X-Ray 08/16/24 15:10 IMPRESSION: 1. No acute cardiopulmonary disease. <JOSE Mane Last Filed: 08/17/24 09:33> ECG Data EKG #1: ECG completion date: 08/16/24 <JOSE Mane Last Filed: 08/17/24 09:33> EKG Interpretation: normal rate, sinus rhythm, no ST changes and normal QT <JOSE Mane Last Filed: 08/17/24 09:33> Critical Care Time Critical Care Time Critical Care Time: No <JOSE Mane Last Filed: 08/17/24 09:33> Discharge Plan Discharge Clinical Impression: Pleurisy, Bronchitis, Anxiety state <JOSE Mane Last Filed: 08/17/24 09:33> Patient Disposition: Home, Self-Care <JOSE Mane Last Filed: 08/17/24 09:33> Condition: Stable <Myrna Christianson PA-C - Last Filed: 08/17/24 09:33> Instructions: Antibiotic Form, Pleurisy (DC), Acute Bronchitis (ED), Anxiety (ED) <Myrna Christianson PA-C - Last Filed: 08/17/24 09:33> Additional Instructions: You were evaluated in the emergency department for chest pain and shortness of breath. Workup here is reassuring. Her presentation is consistent with bronchitis and pleurisy as discussed. Please take tylenol and cough medications as provided. Your also anxious so I have provided you with medications to take as needed for anxiety. Please follow-up with your primary care provider. Return to the emergency department if you develop a fever, worsening or changing chest pain or shortness of breath, or other concerning symptoms. <Myrna Christianson PA-C - Last Filed: 08/17/24 09:33> Prescriptions: New benzonatate 200 mg capsule 200 mg PO BID PRN (Reason: cough) Qty: 14 0RF hydroxyzine pamoate 50 mg capsule 50 mg PO TID PRN (Reason: anxiety) Qty: 20 0RF No Action levetiracetam [Keppra XR] 500 mg tablet extended release 24 hr 1,500 mg PO DAILY Qty: 90 7RF <Myrna Christianson PA-C - Last Filed: 08/17/24 09:33> Follow-up/Referrals: PHYSICIAN NOT ON STAFF,NONSTAFF [Non-Staff] - <Myrna Christianson PA-C - Last Filed: 08/17/24 09:33>
[2024-08-16 18:24] LABS: Basophils Percent Auto 0.4 % (0.2-1.2); Eosinophils Percent Auto 0.7 % (0-4.4); Hematocrit 41.6 % (37.0-47.0); Hemoglobin 14.3 g/dL (12.0-15.0); Immature Platelet Fraction Pct 3.6 % (0.9-11.2); Lymphocytes Absolute Auto 2.36 K/mm3 (0.9-3.2); Lymphocytes Percent Auto 51.3 % (18.3-44.2); Mean Corpuscular HGB Conc 34.4 g/dl (32-36); Mean Corpuscular Hemoglobin 32.5 pg (26-34); Mean Corpuscular Volume 94.5 fl (80-100); Mean Platelet Volume 9.9 fl (7.4-10.4); Monocytes Absolute Auto 0.2 K/mm3 (0.1-0.6); Monocytes Percent Auto 4.6 % (2.6-8.5); Platelet Count Result 136 k/mm3 (150-375); Red Cell Distribution Width 12.7 % (11.5-14.5); White Blood Count 4.6 K/mm3 (4.5-10.0)
[2024-08-16 18:34] LABS: Alanine Aminotransferase 195 U/L (6-35); Alkaline Phosphatase 63 U/L (38-126); Anion Gap 12 mmol/L (4-12); Aspartate Amino Transferase 298 U/L (14-36); Bilirubin,Total 0.7 mg/dL (0.2-1.3); Blood Urea Nitrogen 11 mg/dL (7-17); Calcium 8.6 mg/dL (8.4-10.2); Carbon Dioxide 25 mmol/L (22-30); Chloride 104 mmol/L (98-107); Estimated CRCL calculation 92 ml/min; Estimated Glomerular Filt Rate > 60; Glucose 139 mg/dL (65-110); Lipase 129 U/L (23-300); Potassium 3.8 mmol/L (3.4-5.0); Sodium 141 mmol/L (137-145)
[2024-08-16] MEDS: hydrOXYzine HCL 25 MG TABLET PO ×2 (18:41→20:44)
--- NOTE | 2024-08-16 18:43 | PC.NURSE ---
Pt refusing to change into hospital gown at this time.
[2024-08-16 18:45] LABS: Troponin I < 0.012 ng/mL (0.000-0.034)
[2024-08-16 19:00] LABS: Partial Thromboplastin Time 25.8 Seconds (22.3-36.8)
[2024-08-16 19:03] LABS: D Dimer 0.44 ug/mL (<0.48)
[2024-08-16 19:27] VITALS: BP 132/88; PULSE 78; RESP 16; O2SAT 100
[2024-08-16 20:04] LABS: Troponin I < 0.012 ng/mL (0.000-0.034)
[2024-08-16 20:43] LABS: Influenza A QL RT-PCR Negative (Negative); Influenza B QL RT-PCR Negative (Negative); RSV RNA, RT-PCR Negative (Negative); SARS-CoV-2 RNA PCR Negative (Negative)
--- NOTE | 2024-08-16 20:54 | PC.NURSE ---
Lab notified that green top sent down now is the 3 hour troponin d/t the prior 3 hour troponin being drawn at the wrong time.
--- NOTE | 2024-08-16 20:55 | PC.NURSE ---
Pt approached this RN while in another room very upset about the wait time. Pt escorted back to her room. Pt states I just want to leave. Risks of leaving explained and pt. given AMA form. Pt. then states I just want another pill of what I had before. Order already placed so this RN retrieved medication. Pt. apologized, stating she is upset b/c she left her wallet at home.
--- NOTE | 2024-08-16 20:58 | ECG_ITS ---
Test Date: 2024-08-16 21:03:14 Measurements Intervals [place] Rate: 67 P: 38 RI: 144 QRS: 43 QRSD: 80 T: 56 QT: 445 QTc: 471 Interpretive Statements SINUS RHYTHM BASELINE WANDER- V4 NORMAL ECG Compared to ECG 08/16/2024 14:29:22 Sinus arrhythmia no longer present Electronically Signed On 08-17-2024 06:34:00 SENIOR NETWORK ADMINISTRATOR by Yonatan Goldsmith D.O.
[2024-08-16 21:21] LABS: Troponin I < 0.012 ng/mL (0.000-0.034)
[2024-08-16 21:53] VITALS: BP 128/84; PULSE 75; RESP 15; O2SAT 99
== END 2024-08-16 21:54 | disposition home or self-care (01) ==
PROVIDERS: Emergency Medicine; Emergency Provider Physician Assistant
DX: R09.1 Pleurisy (principal); J40 Bronchitis, not specified as acute or chronic; F41.9 Anxiety disorder, unspecified; Z87.891 Personal history of nicotine dependence; Z20.822 Contact with and (suspected) exposure to COVID-19
CPT/HCPCS: 36415; 71046; 80053; 83690; 84484; 85025; 85055; 85380; 85610; 85730; 87637; 93005; 99284; A9270

== ENCOUNTER 2024-08-23 13:24 | Emergency (ER) | payer BC, SELFPAY ==
[2024-08-23 13:35] VITALS: BP 137/91; PULSE 88; RESP 16; TEMP 36.4; O2SAT 100
[2024-08-23 14:45] VITALS: BP 132/89; PULSE 72; RESP 12; O2SAT 100
[2024-08-23 15:04] VITALS: BP 137/91; PULSE 70; RESP 16; O2SAT 100
[2024-08-23 15:55] LABS: Add Urine Microscopic? YES; Appearance Urine Clear (Clear); Bacteria Urine None Seen /hpf; Bilirubin Urine Negative (Negative); Blood Urine Negative (Negative); Color Urine Yellow (Yellow); Glucose Urine UA Negative (Negative); Ketones Urine Negative (Negative); Leukocyte Esterase Ur Trace LEU/UL (Negative); Need Manual Microscopic Reviewed; Nitrate Urine Negative (Negative); Non Pathogenic Casts 0-2; Protein Urine 1+ mg/dL (Negative); RBC Urine 0-2 /hpf (0-2); Specific Grav Ur 1.006 (1.001-1.035); Squamous Epithelial Cell Urine None Seen /hpf (Few); Urobilinogen Urine 0.2 mg/dL (<2.0); WBC Urine 0-5 /hpf (0-3); pH Urine 6.5 (5.0-9.0)
[2024-08-23 16:30] VITALS: BP 130/74; PULSE 124; RESP 20; O2SAT 99
--- NOTE | 2024-08-23 17:20 | ED.GENADULT ---
HPI - General Adult General Chief complaint: Alcohol Stated complaint: ETOH Time Seen by Provider: 08/23/24 13:30 History of Present Illness HPI narrative: Patient is a 44-year-old female who presents ER with alcohol intoxication. Patient got a DUI today and was also kicked out of a hotel. No SI. No homicidal ideation. Reports she drinks 3 beat box wine coolers which are 11% alcohol. No other complaints. Related Data Allergies Allergy/AdvReac Type Severity Reaction Status Date / Time Penicillins Allergy Hives Verified 08/16/24 14:23 Review of Systems Review of Systems: All systems reviewed & are unremarkable except as noted in HPI and below Constitutional: Constitutional: Reports no additional constitutional complaints ENT: Reports system reviewed and no additional complaints, except as documented Cardiovascular: Cardiovascular: Reports no additional cardiovascular complaints Respiratory: Respiratory: Reports no additional respiratory complaints Musculoskeletal: Musculoskeletal: Reports no additional musculoskeletal complaints PMFSH Past Medical History Medical History BMI 27.0-27.9,adult Fracture, cervical vertebra Family History Family History Father Hyperlipidemia Family history of brain aneurysm Mother Dementia Family history of brain aneurysm Sibling , Onset Age: 18 MVC Sibling No problems noted. Social History Social History Smoking status: Former smoker Tobacco type: cigarettes Second hand tobacco smoke exposure: Yes Alcohol intake: former Alcohol use details: Glass of wine. Not since having a seizure. Substance use: never Substance use type: does not use Do You Feel Safe in your Home?: Yes Lack of Transportation: YES Lack of Food: Never True Current Housing: I Have Housing Concerned About Future Housing: No Difficulty Paying Gas/Electric Bills: No Difficulty Paying for Meds: No Currently Unemployed: No Education: Associate Degree Difficulty w/ Childcare or Family Care: No Living arrangements: with family Occupation/Education: occupation Additional occupation/education comments: [employer]. Gender identity (if verbalized by the patient): Female Exam Narrative: GENERAL: Intoxicated-appearing, well-nourished, and in no acute distress. HEAD: Normocephalic, atraumatic. ENT: Mucous membranes moist. CHEST: Clear to auscultation. No respiratory distress. HEART: Regular rate and rhythm. Normal peripheral pulses. ABDOMEN: Soft, nontender, nondistended. EXTREMITIES: Normal range of motion. No edema. SKIN: Warm, dry, no rash. NEURO: Alert and oriented x3. PSYCH: Normal mood and affect. Course Course Emergency Course: Patient clinically sober. [place] x3. Ambulates with a steady gait. Has plans to Uber to a hotel. Vital Signs Vital signs: Vital Signs Temperature 97.6 F 08/23/24 13:35 Pulse Rate 88 08/23/24 13:35 Respiratory Rate 16 08/23/24 13:35 Blood Pressure 137/91 H 08/23/24 13:35 Pulse Oximetry 100 08/23/24 13:35 Oxygen Delivery Room Air 08/23/24 13:35 Temperature 98.0 F 08/23/24 17:43 Pulse Rate 89 08/23/24 17:43 Respiratory Rate 18 08/23/24 17:43 Blood Pressure 120/80 08/23/24 17:43 Pulse Oximetry 100 08/23/24 17:43 Oxygen Delivery Room Air 08/23/24 13:35 Medical Decision Making Vital Signs Vital Signs: Vital Signs Temperature 97.6 F 08/23/24 13:35 Pulse Rate 88 08/23/24 13:35 Respiratory Rate 16 08/23/24 13:35 Blood Pressure 137/91 H 08/23/24 13:35 Pulse Oximetry 100 08/23/24 13:35 Oxygen Delivery Room Air 08/23/24 13:35 Temperature 98.0 F 08/23/24 17:43 Pulse Rate 89 08/23/24 17:43 Respiratory Rate 18 08/23/24 17:43 Blood Pressure 120/80 08/23/24 17:43 Pulse Oximetry 100 08/23/24 17:43 Oxygen Delivery Room Air 08/23/24 13:35 Lab Data Labs: Lab Results 08/23/24 Range/Units 14:03 Urine Color Yellow (Yellow) Urine Appearance Clear (Clear) Urine pH 6.5 (5.0-9.0) Ur Specific [place] 1.006 (1.001-1.035) Urine Protein 1+ H (Negative) mg/dL Urine Glucose (UA) Negative (Negative) mg/dL Urine Ketones Negative (Negative) mg/dL Ur Blood (Man) Negative (Negative) Urine Nitrate Negative (Negative) Urine Bilirubin Negative (Negative) Urine Urobilinogen 0.2 (<2.0) mg/dL Add Ur Microanalysis Reviewed Leukocyte Esterase Rfl Trace H (Negative) JUANITA/UL Urine RBC 0-2 (0-2) /hpf Urine WBC 0-5 (0-3) /hpf Ur Squamous Epith Cells None seen (Few) /hpf Urine Bacteria None seen /hpf Urine Casts 0-2 Discharge Plan Discharge Clinical Impression: Alcohol abuse Patient Disposition: Home, Self-Care Condition: Stable Instructions: Abuse of Alcohol (ED) Additional Instructions: Is recommend you stop drinking alcohol as is having a negative impact on her life. If you must have a drink it is recommended you do not drink in excess and only in moderation. Prescriptions: No Action levetiracetam [Keppra XR] 500 mg tablet extended release 24 hr 1,500 mg PO DAILY Qty: 90 7RF benzonatate 200 mg capsule 200 mg PO BID PRN (Reason: cough) Qty: 14 0RF hydroxyzine pamoate 50 mg capsule 50 mg PO TID PRN (Reason: anxiety) Qty: 20 0RF Follow-up/Referrals: UNKNOWN,DOCTOR [Primary Care Provider] - 1 Week
[2024-08-23 17:43] VITALS: BP 120/80; PULSE 89; RESP 18; TEMP 36.7; O2SAT 100
== END 2024-08-23 17:45 | disposition home or self-care (01) ==
PROVIDERS: Emergency Provider Emergency Medicine
DX: F10.10 Alcohol abuse, uncomplicated (principal); Z87.891 Personal history of nicotine dependence
CPT/HCPCS: 81001; 99283

== ENCOUNTER 2024-09-21 16:58 | Emergency (ER) | payer BC, SELFPAY ==
[2024-09-21] VITALS (16 sets, daily range): BP systolic 112–138; BP diastolic 80–97; PULSE 69–128; RESP 12–31; TEMP 36.6; O2SAT 95–100
--- NOTE | 2024-09-21 17:04 | ECG_ITS ---
Test Date: 2024-09-21 17:18:35 Measurements Intervals [place] Rate: 80 P: 50 IN: 159 QRS: 23 QRSD: 77 T: 33 QT: 422 QTc: 489 Interpretive Statements SINUS RHYTHM PROLONGED QT INTERVAL Compared to ECG 08/16/2024 21:03:14 No significant changes Electronically Signed On 09-22-2024 15:51:12 BOX LOADER by Yoshi Hill M.D.
--- NOTE | 2024-09-21 17:13 | ED_ITS ---
HPI - Overdose General Chief Complaint: Overdose <Myrna Christianson PA-C - Last Filed: 09/22/24 18:40> Stated Complaint: Overdose <Myrna Christianson PA-C - Last Filed: 09/22/24 18:40> Time Seen by Provider: 09/21/24 17:12 <Myrna Christianson PA-C - Last Filed: 09/22/24 18:40> Source: patient and EMS <Myrna Christianson PA-C - Last Filed: 09/22/24 18:40> Mode of arrival: EMS <Myrna Christianson PA-C - Last Filed: 09/22/24 18:40> Limitations: intoxication <Myrna Christianson PA-C - Last Filed: 09/22/24 18:40> History of Present Illness HPI Narrative: This is a 44-year-old female that presents to the emergency department after a suicide attempt. Patient's took 20, 50 mg Benadryl tablets and drink approximately 48 oz of wine. She did this to kill herself. Patient repeatedly stating just let me . <Myrna Christianson PA-C - Last Filed: 09/22/24 18:40> Related Data Allergies/Adverse Reactions: Allergies Allergy/AdvReac Type Severity Reaction Status Date / Time Penicillins Allergy Hives Verified 09/21/24 17:52 <Myrna Christianson PA-C - Last Filed: 09/22/24 18:40> Review of Systems 2 Review of Systems: ROS unobtainable: Yes unobtainable due to mental status <Myrna Christianson PA-C - Last Filed: 09/22/24 18:40> [facility] Past Medical History Medical History: Medical History BMI 27.0-27.9,adult Fracture, cervical vertebra <Myrna Christianson PA-C - Last Filed: 09/22/24 18:40> Family History Family History: Family History Father Hyperlipidemia Family history of brain aneurysm Mother Dementia Family history of brain aneurysm Sibling , Onset Age: 18 MVC Sibling No problems noted. <Myrna Christianson PA-C - Last Filed: 09/22/24 18:40> Social History Social History: Social History Smoking status: Former smoker Tobacco type: cigarettes Second hand tobacco smoke exposure: Yes Alcohol intake: former Alcohol use details: Glass of wine. Not since having a seizure. Substance use: never Substance use type: unknown Do You Feel Safe in your Home?: Yes Lack of Transportation: YES Lack of Food: Never True Current Housing: I Have Housing Concerned About Future Housing: No Difficulty Paying Gas/Electric Bills: No Difficulty Paying for Meds: No Currently Unemployed: No Education: Associate Degree Difficulty w/ Childcare or Family Care: No Living arrangements: with family Occupation/Education: occupation Additional occupation/education comments: [employer]. Gender identity (if verbalized by the patient): Female <Myrna Christianson PA-C - Last Filed: 09/22/24 18:40> Exam 2 Narrative: GENERAL: Lethargic, well-nourished, and in no acute distress. HEAD: Normocephalic, atraumatic. EYES: PERRLA and EOMI. ENT: Nares clear, no rhinorrhea or epistaxis. Mucous membranes moist. Oropharynx without tonsillar hypertrophy exudate or other lesions. NECK: Supple. No adenopathy or masses. CHEST: Clear to auscultation. No respiratory distress. No wheezes rales or rhonchi HEART: Regular rate and rhythm. No murmur heard. Normal peripheral pulses. EXTREMITIES: Normal range of motion. No edema. SKIN: Warm, dry, no rash. NEURO: No focal deficits. Alert and oriented x3. PSYCH: Depressed mood and affect <Myrna Christianson PA-C - Last Filed: 09/22/24 18:40> Course Course Emergency Course: ZYCH 07: patient signed out to the oncoming physician. Patient is medically cleared for treatment and transfer to a psychiatric facility. Expect admission for suicidal ideation. Patient given 5 mg of Valium for anxiety. < Derrek Jorge MD - Last Filed: 09/22/24 06:50> ZYCH 0700: patient signed out to the oncoming physician. Patient is medically cleared for treatment and transfer to a psychiatric facility. Expect admission for suicidal ideation. Patient given 5 mg of Valium for anxiety. 1126: Accepted by Dr. Manning at [facility] who also requested librium 50mg PO and Keppra 1500mg to be given. <Evert Alvarado MD - Last Filed: 09/22/24 11:28> [employer]/PA Physician Supervision For this patient encounter, I reviewed the V[employer] or PA documentation, treatment plan, and medical decision making; and I had [id number] time with this patient. <Hector Hernandez MD - Last Filed: 09/22/24 13:03> Vital Signs Vital signs: Vital Signs Temperature 97.9 F 09/21/24 16:56 Temperature 98 F 09/22/24 12:48 Pulse Rate 95 09/22/24 12:48 Respiratory Rate 18 09/22/24 12:48 Blood Pressure 145/94 H 09/22/24 12:48 Pulse Oximetry 100 09/22/24 12:48 Oxygen Delivery Room Air 09/21/24 17:20 <RAPHAEL ManeC - Last Filed: 09/22/24 18:40> Vital Signs Temperature 97.9 F 09/21/24 16:56 Temperature 98 F 09/22/24 12:48 Pulse Rate 95 09/22/24 12:48 Respiratory Rate 18 09/22/24 12:48 Blood Pressure 145/94 H 09/22/24 12:48 Pulse Oximetry 100 09/22/24 12:48 Oxygen Delivery Room Air 09/21/24 17:20 <Hector Hernandez MD - Last Filed: 09/22/24 13:03> Vital Signs Temperature 97.9 F 09/21/24 16:56 Temperature 98 F 09/22/24 12:48 Pulse Rate 95 09/22/24 12:48 Respiratory Rate 18 09/22/24 12:48 Blood Pressure 145/94 H 09/22/24 12:48 Pulse Oximetry 100 09/22/24 12:48 Oxygen Delivery Room Air 09/21/24 17:20 <Derrek Jorge MD - Last Filed: 09/22/24 06:50> Vital Signs Temperature 97.9 F 09/21/24 16:56 Temperature 98 F 09/22/24 12:48 Pulse Rate 95 09/22/24 12:48 Respiratory Rate 18 09/22/24 12:48 Blood Pressure 145/94 H 09/22/24 12:48 Pulse Oximetry 100 09/22/24 12:48 Oxygen Delivery Room Air 09/21/24 17:20 <Evert Alvarado MD - Last Filed: 09/22/24 11:28> MDM - Overdose MDM Narrative Medical decision making narrative: Patient presents to the ER after intentional overdose on Benadryl and wine. Tachycardic upon arrival, this normalized with IV fluids. Lethargic upon arrival, but alert to verbal stimuli. No focal deficits. CBC without concerning findings. Metabolic panel with some evidence of dehydration. Patient hydrated with IV fluids in the ED. Alcohol level 289. Drug screen is negative. Care taken over by Dr. Jorge at shift change pending sobriety and evaluation by crisis <Myrna Christianson PA-C - Last Filed: 09/22/24 18:40> Differential Diagnosis Differential diagnosis: Likely suicide attempt by multiple drug overdose, poisoning by opiate or related narcotic, drug overdose and accidental drug ingestion <Myrna Christianson PA-C - Last Filed: 09/22/24 18:40> Lab Data Attestation: I reviewed the patient's lab results. <Myrna Christianson PA-C - Last Filed: 09/22/24 18:40> Result diagrams: 09/21/24 17:25 09/21/24 17:25 <Myrna Christianson PA-C - Last Filed: 09/22/24 18:40> Labs: Lab Results 09/21/24 09/21/24 09/21/24 Range/Units 17:25 17:27 17:51 WBC 6.8 (4.5-10.0) K/mm3 RBC 4.41 (4.2-5.4) M/mm3 Hgb 14.4 (12.0-15.0) g/dL Hct 41.9 (37.0-47.0) % MCV 95.0 (80-100) fl MCH 32.7 (26-34) pg MCHC 34.4 (32-36) g/dl RDW 12.6 (11.5-14.5) % Plt Count 220 D (150-375) k/mm3 MPV 9.6 (7.4-10.4) fl Immature Gran % (Auto) 0.3 (0-0.5) % Neut % (Auto) 36.9 L (45.5-73.1) % Lymph % (Auto) 55.6 H (18.3-44.2) % Daggett % (Auto) 5.0 (2.6-8.5) % Eos % (Auto) 1.8 (0-4.4) % Baso % (Auto) 0.4 (0.2-1.2) % Lymph # (Auto) 3.78 H (0.9-3.2) K/mm3 Daggett # (Auto) 0.3 (0.1-0.6) K/mm3 Eos # (Auto) 0.1 (0-0.3) K/mm3 Baso # (Auto) 0.0 (0.0-0.1) K/mm3 Abs Immat Gran (auto) 0.02 (0.00-0.031) K/mm3 Absolute Neuts (auto) 2.5 (1.3-6.7) K/mm3 Absolute Nucleated RBC 0.000 (0.0-0.012) K/mm3 Nucleated RBC % 0.0 (0.0-0.2) % Sodium 144 (137-145) mmol/L Potassium 3.7 (3.4-5.0) mmol/L Chloride 110 H (98-107) mmol/L Carbon Dioxide 20 L (22-30) mmol/L Anion Gap 14 H (4-12) mmol/L BUN 8 (7-17) mg/dL Creatinine 0.70 (0.7-1.0) mg/dL Estim Creat Clear Calc 92 ml/min Estimated GFR > 60 (59 - ) Glucose 99 (65-110) mg/dL Calcium 9.6 (8.4-10.2) mg/dL Magnesium 2.2 Cancelled (1.6-2.3) mg/dL Total Bilirubin 0.8 (0.2-1.3) mg/dL AST 71 H (14-36) U/L ALT 55 H (6-35) U/L Alkaline Phosphatase 65 (38-126) U/L Total Creatine Kinase 130 Cancelled (30-135) U/L Total Protein 8.0 (6.3-8.2) g/dL Albumin 4.8 (3.5-5.1) g/dL TSH 2.470 (0.465-4.680) uIU/mL Urine Color (Yellow) Urine Appearance (Clear) Urine pH (5.0-9.0) Ur Specific Mayflower (1.001-1.035) Urine Protein (Negative) mg/dL Urine Glucose (UA) (Negative) mg/dL Urine Ketones (Negative) mg/dL Ur Blood (Man) (Negative) Urine Nitrate (Negative) Urine Bilirubin (Negative) Urine Urobilinogen (<2.0) mg/dL Leukocyte Esterase Rfl (Negative) JUANITA/UL Urine RBC (0-2) /hpf Urine WBC (0-3) /hpf Ur Squamous Epith Cells (Few) /hpf Urine Bacteria /hpf Urine Casts POC Urine HCG, Qual Negative (Negative) Salicylates < 1.0 L (2-20) mg/dL Urine Opiates Screen (Negative) Urine Methadone Screen (Negative) Acetaminophen < 10 L (10-30) ug/mL Ur Barbiturates Screen (Negative) Ur Phencyclidine Scrn (Negative) Ur Amphetamine Screen (Negative) U Benzodiazepines Scrn (Negative) Urine Cocaine Screen (Negative) U Cannabinoids Screen (Negative) Ethyl Alcohol 289 (<10) mg/dL SARS-CoV-2 RNA (RT-PCR) Negative (Negative) 09/21/24 09/22/24 Range/Units 17:54 03:39 WBC (4.5-10.0) K/mm3 RBC (4.2-5.4) M/mm3 Hgb (12.0-15.0) g/dL Hct (37.0-47.0) % MCV (80-100) fl MCH (26-34) pg MCHC (32-36) g/dl RDW (11.5-14.5) % Plt Count (150-375) k/mm3 MPV (7.4-10.4) fl Immature Gran % (Auto) (0-0.5) % Neut % (Auto) (45.5-73.1) % Lymph % (Auto) (18.3-44.2) % Daggett % (Auto) (2.6-8.5) % Eos % (Auto) (0-4.4) % Baso % (Auto) (0.2-1.2) % Lymph # (Auto) (0.9-3.2) K/mm3 Daggett # (Auto) (0.1-0.6) K/mm3 Eos # (Auto) (0-0.3) K/mm3 Baso # (Auto) (0.0-0.1) K/mm3 Abs Immat Gran (auto) (0.00-0.031) K/mm3 Absolute Neuts (auto) (1.3-6.7) K/mm3 Absolute Nucleated RBC (0.0-0.012) K/mm3 Nucleated RBC % (0.0-0.2) % Sodium (137-145) mmol/L Potassium (3.4-5.0) mmol/L Chloride (98-107) mmol/L Carbon Dioxide (22-30) mmol/L Anion Gap (4-12) mmol/L BUN (7-17) mg/dL Creatinine (0.7-1.0) mg/dL Estim Creat Clear Calc ml/min Estimated GFR (59 - ) Glucose (65-110) mg/dL Calcium (8.4-10.2) mg/dL Magnesium (1.6-2.3) mg/dL Total Bilirubin (0.2-1.3) mg/dL AST (14-36) U/L ALT (6-35) U/L Alkaline Phosphatase (38-126) U/L Total Creatine Kinase (30-135) U/L Total Protein (6.3-8.2) g/dL Albumin (3.5-5.1) g/dL TSH (0.465-4.680) uIU/mL Urine Color Yellow (Yellow) Urine Appearance Clear (Clear) Urine pH 7.5 (5.0-9.0) Ur Specific Mayflower 1.005 (1.001-1.035) Urine Protein Negative (Negative) mg/dL Urine Glucose (UA) Negative (Negative) mg/dL Urine Ketones Negative (Negative) mg/dL Ur Blood (Man) Negative (Negative) Urine Nitrate Negative (Negative) Urine Bilirubin Negative (Negative) Urine Urobilinogen 0.2 (<2.0) mg/dL Leukocyte Esterase Rfl Trace H (Negative) JUANITA/UL Urine RBC 0-2 (0-2) /hpf Urine WBC 0-5 (0-3) /hpf Ur Squamous Epith Cells Occasional (Few) /hpf Urine Bacteria Rare /hpf Urine Casts 0-2 POC Urine HCG, Qual (Negative) Salicylates (2-20) mg/dL Urine Opiates Screen Negative (Negative) Urine Methadone Screen Negative (Negative) Acetaminophen (10-30) ug/mL Ur Barbiturates Screen Negative (Negative) Ur Phencyclidine Scrn Negative (Negative) Ur Amphetamine Screen Negative (Negative) U Benzodiazepines Scrn Negative (Negative) Urine Cocaine Screen Negative (Negative) U Cannabinoids Screen Negative (Negative) Ethyl Alcohol 57 (<10) mg/dL SARS-CoV-2 RNA (RT-PCR) (Negative) <Myrna Christianson PA-C - Last Filed: 09/22/24 18:40> Lab Results 09/21/24 09/21/24 09/21/24 Range/Units 17:25 17:27 17:51 WBC 6.8 (4.5-10.0) K/mm3 RBC 4.41 (4.2-5.4) M/mm3 Hgb 14.4 (12.0-15.0) g/dL Hct 41.9 (37.0-47.0) % MCV 95.0 (80-100) fl MCH 32.7 (26-34) pg MCHC 34.4 (32-36) g/dl RDW 12.6 (11.5-14.5) % Plt Count 220 D (150-375) k/mm3 MPV 9.6 (7.4-10.4) fl Immature Gran % (Auto) 0.3 (0-0.5) % Neut % (Auto) 36.9 L (45.5-73.1) % Lymph % (Auto) 55.6 H (18.3-44.2) % Daggett % (Auto) 5.0 (2.6-8.5) % Eos % (Auto) 1.8 (0-4.4) % Baso % (Auto) 0.4 (0.2-1.2) % Lymph # (Auto) 3.78 H (0.9-3.2) K/mm3 Daggett # (Auto) 0.3 (0.1-0.6) K/mm3 Eos # (Auto) 0.1 (0-0.3) K/mm3 Baso # (Auto) 0.0 (0.0-0.1) K/mm3 Abs Immat Gran (auto) 0.02 (0.00-0.031) K/mm3 Absolute Neuts (auto) 2.5 (1.3-6.7) K/mm3 Absolute Nucleated RBC 0.000 (0.0-0.012) K/mm3 Nucleated RBC % 0.0 (0.0-0.2) % Sodium 144 (137-145) mmol/L Potassium 3.7 (3.4-5.0) mmol/L Chloride 110 H (98-107) mmol/L Carbon Dioxide 20 L (22-30) mmol/L Anion Gap 14 H (4-12) mmol/L BUN 8 (7-17) mg/dL Creatinine 0.70 (0.7-1.0) mg/dL Estim Creat Clear Calc 92 ml/min Estimated GFR > 60 (59 - ) Glucose 99 (65-110) mg/dL Calcium 9.6 (8.4-10.2) mg/dL Magnesium 2.2 Cancelled (1.6-2.3) mg/dL Total Bilirubin 0.8 (0.2-1.3) mg/dL AST 71 H (14-36) U/L ALT 55 H (6-35) U/L Alkaline Phosphatase 65 (38-126) U/L Total Creatine Kinase 130 Cancelled (30-135) U/L Total Protein 8.0 (6.3-8.2) g/dL Albumin 4.8 (3.5-5.1) g/dL TSH 2.470 (0.465-4.680) uIU/mL Urine Color (Yellow) Urine Appearance (Clear) Urine pH (5.0-9.0) Ur Specific Mayflower (1.001-1.035) Urine Protein (Negative) mg/dL Urine Glucose (UA) (Negative) mg/dL Urine Ketones (Negative) mg/dL Ur Blood (Man) (Negative) Urine Nitrate (Negative) Urine Bilirubin (Negative) Urine Urobilinogen (<2.0) mg/dL Leukocyte Esterase Rfl (Negative) JUANITA/UL Urine RBC (0-2) /hpf Urine WBC (0-3) /hpf Ur Squamous Epith Cells (Few) /hpf Urine Bacteria /hpf Urine Casts POC Urine HCG, Qual Negative (Negative) Salicylates < 1.0 L (2-20) mg/dL Urine Opiates Screen (Negative) Urine Methadone Screen (Negative) Acetaminophen < 10 L (10-30) ug/mL Ur Barbiturates Screen (Negative) Ur Phencyclidine Scrn (Negative) Ur Amphetamine Screen (Negative) U Benzodiazepines Scrn (Negative) Urine Cocaine Screen (Negative) U Cannabinoids Screen (Negative) Ethyl Alcohol 289 (<10) mg/dL SARS-CoV-2 RNA (RT-PCR) Negative (Negative) 09/21/24 09/22/24 Range/Units 17:54 03:39 WBC (4.5-10.0) K/mm3 RBC (4.2-5.4) M/mm3 Hgb (12.0-15.0) g/dL Hct (37.0-47.0) % MCV (80-100) fl MCH (26-34) pg MCHC (32-36) g/dl RDW (11.5-14.5) % Plt Count (150-375) k/mm3 MPV (7.4-10.4) fl Immature Gran % (Auto) (0-0.5) % Neut % (Auto) (45.5-73.1) % Lymph % (Auto) (18.3-44.2) % Daggett % (Auto) (2.6-8.5) % Eos % (Auto) (0-4.4) % Baso % (Auto) (0.2-1.2) % Lymph # (Auto) (0.9-3.2) K/mm3 Daggett # (Auto) (0.1-0.6) K/mm3 Eos # (Auto) (0-0.3) K/mm3 Baso # (Auto) (0.0-0.1) K/mm3 Abs Immat Gran (auto) (0.00-0.031) K/mm3 Absolute Neuts (auto) (1.3-6.7) K/mm3 Absolute Nucleated RBC (0.0-0.012) K/mm3 Nucleated RBC % (0.0-0.2) % Sodium (137-145) mmol/L Potassium (3.4-5.0) mmol/L Chloride (98-107) mmol/L Carbon Dioxide (22-30) mmol/L Anion Gap (4-12) mmol/L BUN (7-17) mg/dL Creatinine (0.7-1.0) mg/dL Estim Creat Clear Calc ml/min Estimated GFR (59 - ) Glucose (65-110) mg/dL Calcium (8.4-10.2) mg/dL Magnesium (1.6-2.3) mg/dL Total Bilirubin (0.2-1.3) mg/dL AST (14-36) U/L ALT (6-35) U/L Alkaline Phosphatase (38-126) U/L Total Creatine Kinase (30-135) U/L Total Protein (6.3-8.2) g/dL Albumin (3.5-5.1) g/dL TSH (0.465-4.680) uIU/mL Urine Color Yellow (Yellow) Urine Appearance Clear (Clear) Urine pH 7.5 (5.0-9.0) Ur Specific Mayflower 1.005 (1.001-1.035) Urine Protein Negative (Negative) mg/dL Urine Glucose (UA) Negative (Negative) mg/dL Urine Ketones Negative (Negative) mg/dL Ur Blood (Man) Negative (Negative) Urine Nitrate Negative (Negative) Urine Bilirubin Negative (Negative) Urine Urobilinogen 0.2 (<2.0) mg/dL Leukocyte Esterase Rfl Trace H (Negative) JUANITA/UL Urine RBC 0-2 (0-2) /hpf Urine WBC 0-5 (0-3) /hpf Ur Squamous Epith Cells Occasional (Few) /hpf Urine Bacteria Rare /hpf Urine Casts 0-2 POC Urine HCG, Qual (Negative) Salicylates (2-20) mg/dL Urine Opiates Screen Negative (Negative) Urine Methadone Screen Negative (Negative) Acetaminophen (10-30) ug/mL Ur Barbiturates Screen Negative (Negative) Ur Phencyclidine Scrn Negative (Negative) Ur Amphetamine Screen Negative (Negative) U Benzodiazepines Scrn Negative (Negative) Urine Cocaine Screen Negative (Negative) U Cannabinoids Screen Negative (Negative) Ethyl Alcohol 57 (<10) mg/dL SARS-CoV-2 RNA (RT-PCR) (Negative) <Hector Hernandez MD - Last Filed: 09/22/24 13:03> Lab Results 12/09/21/24 09/21/24 Range/Units 17:25 17:27 17:51 WBC 6.8 (4.5-10.0) K/mm3 RBC 4.41 (4.2-5.4) M/mm3 Hgb 14.4 (12.0-15.0) g/dL Hct 41.9 (37.0-47.0) % MCV 95.0 (80-100) fl MCH 32.7 (26-34) pg MCHC 34.4 (32-36) g/dl RDW 12.6 (11.5-14.5) % Plt Count 220 D (150-375) k/mm3 MPV 9.6 (7.4-10.4) fl Immature Gran % (Auto) 0.3 (0-0.5) % Neut % (Auto) 36.9 L (45.5-73.1) % Lymph % (Auto) 55.6 H (18.3-44.2) % Daggett % (Auto) 5.0 (2.6-8.5) % Eos % (Auto) 1.8 (0-4.4) % Baso % (Auto) 0.4 (0.2-1.2) % Lymph # (Auto) 3.78 H (0.9-3.2) K/mm3 Daggett # (Auto) 0.3 (0.1-0.6) K/mm3 Eos # (Auto) 0.1 (0-0.3) K/mm3 Baso # (Auto) 0.0 (0.0-0.1) K/mm3 Abs Immat Gran (auto) 0.02 (0.00-0.031) K/mm3 Absolute Neuts (auto) 2.5 (1.3-6.7) K/mm3 Absolute Nucleated RBC 0.000 (0.0-0.012) K/mm3 Nucleated RBC % 0.0 (0.0-0.2) % Sodium 144 (137-145) mmol/L Potassium 3.7 (3.4-5.0) mmol/L Chloride 110 H (98-107) mmol/L Carbon Dioxide 20 L (22-30) mmol/L Anion Gap 14 H (4-12) mmol/L BUN 8 (7-17) mg/dL Creatinine 0.70 (0.7-1.0) mg/dL Estim Creat Clear Calc 92 ml/min Estimated GFR > 60 (59 - ) Glucose 99 (65-110) mg/dL Calcium 9.6 (8.4-10.2) mg/dL Magnesium 2.2 Cancelled (1.6-2.3) mg/dL Total Bilirubin 0.8 (0.2-1.3) mg/dL AST 71 H (14-36) U/L ALT 55 H (6-35) U/L Alkaline Phosphatase 65 (38-126) U/L Total Creatine Kinase 130 Cancelled (30-135) U/L Total Protein 8.0 (6.3-8.2) g/dL Albumin 4.8 (3.5-5.1) g/dL TSH 2.470 (0.465-4.680) uIU/mL Urine Color (Yellow) Urine Appearance (Clear) Urine pH (5.0-9.0) Ur Specific Mayflower (1.001-1.035) Urine Protein (Negative) mg/dL Urine Glucose (UA) (Negative) mg/dL Urine Ketones (Negative) mg/dL Ur Blood (Man) (Negative) Urine Nitrate (Negative) Urine Bilirubin (Negative) Urine Urobilinogen (<2.0) mg/dL Leukocyte Esterase Rfl (Negative) JUANITA/UL Urine RBC (0-2) /hpf Urine WBC (0-3) /hpf Ur Squamous Epith Cells (Few) /hpf Urine Bacteria /hpf Urine Casts POC Urine HCG, Qual Negative (Negative) Salicylates < 1.0 L (2-20) mg/dL Urine Opiates Screen (Negative) Urine Methadone Screen (Negative) Acetaminophen < 10 L (10-30) ug/mL Ur Barbiturates Screen (Negative) Ur Phencyclidine Scrn (Negative) Ur Amphetamine Screen (Negative) U Benzodiazepines Scrn (Negative) Urine Cocaine Screen (Negative) U Cannabinoids Screen (Negative) Ethyl Alcohol 289 (<10) mg/dL SARS-CoV-2 RNA (RT-PCR) Negative (Negative) 09/21/24 09/22/24 Range/Units 17:54 03:39 WBC (4.5-10.0) K/mm3 RBC (4.2-5.4) M/mm3 Hgb (12.0-15.0) g/dL Hct (37.0-47.0) % MCV (80-100) fl MCH (26-34) pg MCHC (32-36) g/dl RDW (11.5-14.5) % Plt Count (150-375) k/mm3 MPV (7.4-10.4) fl Immature Gran % (Auto) (0-0.5) % Neut % (Auto) (45.5-73.1) % Lymph % (Auto) (18.3-44.2) % Daggett % (Auto) (2.6-8.5) % Eos % (Auto) (0-4.4) % Baso % (Auto) (0.2-1.2) % Lymph # (Auto) (0.9-3.2) K/mm3 Daggett # (Auto) (0.1-0.6) K/mm3 Eos # (Auto) (0-0.3) K/mm3 Baso # (Auto) (0.0-0.1) K/mm3 Abs Immat Gran (auto) (0.00-0.031) K/mm3 Absolute Neuts (auto) (1.3-6.7) K/mm3 Absolute Nucleated RBC (0.0-0.012) K/mm3 Nucleated RBC % (0.0-0.2) % Sodium (137-145) mmol/L Potassium (3.4-5.0) mmol/L Chloride (98-107) mmol/L Carbon Dioxide (22-30) mmol/L Anion Gap (4-12) mmol/L BUN (7-17) mg/dL Creatinine (0.7-1.0) mg/dL Estim Creat Clear Calc ml/min Estimated GFR (59 - ) Glucose (65-110) mg/dL Calcium (8.4-10.2) mg/dL Magnesium (1.6-2.3) mg/dL Total Bilirubin (0.2-1.3) mg/dL AST (14-36) U/L ALT (6-35) U/L Alkaline Phosphatase (38-126) U/L Total Creatine Kinase (30-135) U/L Total Protein (6.3-8.2) g/dL Albumin (3.5-5.1) g/dL TSH (0.465-4.680) uIU/mL Urine Color Yellow (Yellow) Urine Appearance Clear (Clear) Urine pH 7.5 (5.0-9.0) Ur Specific Mayflower 1.005 (1.001-1.035) Urine Protein Negative (Negative) mg/dL Urine Glucose (UA) Negative (Negative) mg/dL Urine Ketones Negative (Negative) mg/dL Ur Blood (Man) Negative (Negative) Urine Nitrate Negative (Negative) Urine Bilirubin Negative (Negative) Urine Urobilinogen 0.2 (<2.0) mg/dL Leukocyte Esterase Rfl Trace H (Negative) JUANITA/UL Urine RBC 0-2 (0-2) /hpf Urine WBC 0-5 (0-3) /hpf Ur Squamous Epith Cells Occasional (Few) /hpf Urine Bacteria Rare /hpf Urine Casts 0-2 POC Urine HCG, Qual (Negative) Salicylates (2-20) mg/dL Urine Opiates Screen Negative (Negative) Urine Methadone Screen Negative (Negative) Acetaminophen (10-30) ug/mL Ur Barbiturates Screen Negative (Negative) Ur Phencyclidine Scrn Negative (Negative) Ur Amphetamine Screen Negative (Negative) U Benzodiazepines Scrn Negative (Negative) Urine Cocaine Screen Negative (Negative) U Cannabinoids Screen Negative (Negative) Ethyl Alcohol 57 (<10) mg/dL SARS-CoV-2 RNA (RT-PCR) (Negative) <Derrek Jorge MD - Last Filed: 09/22/24 06:50> Lab Results 09/21/24 09/21/24 09/21/24 Range/Units 17:25 17:27 17:51 WBC 6.8 (4.5-10.0) K/mm3 RBC 4.41 (4.2-5.4) M/mm3 Hgb 14.4 (12.0-15.0) g/dL Hct 41.9 (37.0-47.0) % MCV 95.0 (80-100) fl MCH 32.7 (26-34) pg MCHC 34.4 (32-36) g/dl RDW 12.6 (11.5-14.5) % Plt Count 220 D (150-375) k/mm3 MPV 9.6 (7.4-10.4) fl Immature Gran % (Auto) 0.3 (0-0.5) % Neut % (Auto) 36.9 L (45.5-73.1) % Lymph % (Auto) 55.6 H (18.3-44.2) % [place]gett % (Auto) 5.0 (2.6-8.5) % Eos % (Auto) 1.8 (0-4.4) % Baso % (Auto) 0.4 (0.2-1.2) % Lymph # (Auto) 3.78 H (0.9-3.2) K/mm3 Daggett # (Auto) 0.3 (0.1-0.6) K/mm3 Eos # (Auto) 0.1 (0-0.3) K/mm3 Baso # (Auto) 0.0 (0.0-0.1) K/mm3 Abs Immat Gran (auto) 0.02 (0.00-0.031) K/mm3 Absolute Neuts (auto) 2.5 (1.3-6.7) K/mm3 Absolute Nucleated RBC 0.000 (0.0-0.012) K/mm3 Nucleated RBC % 0.0 (0.0-0.2) % Sodium 144 (137-145) mmol/L Potassium 3.7 (3.4-5.0) mmol/L Chloride 110 H (98-107) mmol/L Carbon Dioxide 20 L (22-30) mmol/L Anion Gap 14 H (4-12) mmol/L BUN 8 (7-17) mg/dL Creatinine 0.70 (0.7-1.0) mg/dL Estim Creat Clear Calc 92 ml/min Estimated GFR > 60 (59 - ) Glucose 99 (65-110) mg/dL Calcium 9.6 (8.4-10.2) mg/dL Magnesium 2.2 Cancelled (1.6-2.3) mg/dL Total Bilirubin 0.8 (0.2-1.3) mg/dL AST 71 H (14-36) U/L ALT 55 H (6-35) U/L Alkaline Phosphatase 65 (38-126) U/L Total Creatine Kinase 130 Cancelled (30-135) U/L Total Protein 8.0 (6.3-8.2) g/dL Albumin 4.8 (3.5-5.1) g/dL TSH 2.470 (0.465-4.680) uIU/mL Urine Color (Yellow) Urine Appearance (Clear) Urine pH (5.0-9.0) Ur Specific [place]flower (1.001-1.035) Urine Protein (Negative) mg/dL Urine Glucose (UA) (Negative) mg/dL Urine Ketones (Negative) mg/dL Ur Blood (Man) (Negative) Urine Nitrate (Negative) Urine Bilirubin (Negative) Urine Urobilinogen (<2.0) mg/dL Leukocyte Esterase Rfl (Negative) JUANITA/UL Urine RBC (0-2) /hpf Urine WBC (0-3) /hpf Ur Squamous Epith Cells (Few) /hpf Urine Bacteria /hpf Urine Casts POC Urine HCG, Qual Negative (Negative) Salicylates < 1.0 L (2-20) mg/dL Urine Opiates Screen (Negative) Urine Methadone Screen (Negative) Acetaminophen < 10 L (10-30) ug/mL Ur Barbiturates Screen (Negative) Ur Phencyclidine Scrn (Negative) Ur Amphetamine Screen (Negative) U Benzodiazepines Scrn (Negative) Urine Cocaine Screen (Negative) U Cannabinoids Screen (Negative) Ethyl Alcohol 289 (<10) mg/dL SARS-CoV-2 RNA (RT-PCR) Negative (Negative) 09/21/24 09/22/24 Range/Units 17:54 03:39 WBC (4.5-10.0) K/mm3 RBC (4.2-5.4) M/mm3 Hgb (12.0-15.0) g/dL Hct (37.0-47.0) % MCV (80-100) fl MCH (26-34) pg MCHC (32-36) g/dl RDW (11.5-14.5) % Plt Count (150-375) k/mm3 MPV (7.4-10.4) fl Immature Gran % (Auto) (0-0.5) % Neut % (Auto) (45.5-73.1) % Lymph % (Auto) (18.3-44.2) % Daggett % (Auto) (2.6-8.5) % Eos % (Auto) (0-4.4) % Baso % (Auto) (0.2-1.2) % Lymph # (Auto) (0.9-3.2) K/mm3 [place]gett # (Auto) (0.1-0.6) K/mm3 Eos # (Auto) (0-0.3) K/mm3 Baso # (Auto) (0.0-0.1) K/mm3 Abs Immat Gran (auto) (0.00-0.031) K/mm3 Absolute Neuts (auto) (1.3-6.7) K/mm3 Absolute Nucleated RBC (0.0-0.012) K/mm3 Nucleated RBC % (0.0-0.2) % Sodium (137-145) mmol/L Potassium (3.4-5.0) mmol/L Chloride (98-107) mmol/L Carbon Dioxide (22-30) mmol/L Anion Gap (4-12) mmol/L BUN (7-17) mg/dL Creatinine (0.7-1.0) mg/dL Estim Creat Clear Calc ml/min Estimated GFR (59 - ) Glucose (65-110) mg/dL Calcium (8.4-10.2) mg/dL Magnesium (1.6-2.3) mg/dL Total Bilirubin (0.2-1.3) mg/dL AST (14-36) U/L ALT (6-35) U/L Alkaline Phosphatase (38-126) U/L Total Creatine Kinase (30-135) U/L Total Protein (6.3-8.2) g/dL Albumin (3.5-5.1) g/dL TSH (0.465-4.680) uIU/mL Urine Color Yellow (Yellow) Urine Appearance Clear (Clear) Urine pH 7.5 (5.0-9.0) Ur Specific [place] 1.005 (1.001-1.035) Urine Protein Negative (Negative) mg/dL Urine Glucose (UA) Negative (Negative) mg/dL Urine Ketones Negative (Negative) mg/dL Ur Blood (Man) Negative (Negative) Urine Nitrate Negative (Negative) Urine Bilirubin Negative (Negative) Urine Urobilinogen 0.2 (<2.0) mg/dL Leukocyte Esterase Rfl Trace H (Negative) JUANITA/UL Urine RBC 0-2 (0-2) /hpf Urine WBC 0-5 (0-3) /hpf Ur Squamous Epith Cells Occasional (Few) /hpf Urine Bacteria Rare /hpf Urine Casts 0-2 POC Urine HCG, Qual (Negative) Salicylates (2-20) mg/dL Urine Opiates Screen Negative (Negative) Urine Methadone Screen Negative (Negative) Acetaminophen (10-30) ug/mL Ur Barbiturates Screen Negative (Negative) Ur Phencyclidine Scrn Negative (Negative) Ur Amphetamine Screen Negative (Negative) U Benzodiazepines Scrn Negative (Negative) Urine Cocaine Screen Negative (Negative) U Cannabinoids Screen Negative (Negative) Ethyl Alcohol 57 (<10) mg/dL SARS-CoV-2 RNA (RT-PCR) (Negative) <Evert Alvarado MD - Last Filed: 09/22/24 11:28> ECG Data EKG #1: ECG completion date: 09/21/24 <Myrna Christianson PA-C - Last Filed: 09/22/24 18:40> EKG Interpretation: normal rate, sinus rhythm, no ST changes and normal QT <Myrna Christianson PA-C - Last Filed: 09/22/24 18:40> Critical Care Time Critical Care Time Critical Care Time: No <Myrna Christianson PA-C - Last Filed: 09/22/24 18:40> Discharge Plan Discharge Clinical Impression: Depression with suicidal ideation <Myrna Christianson PA-C - Last Filed: 09/22/24 18:40> Patient Disposition: Psychiatric [facility]osp <Myrna Christianson PA-C - Last Filed: 09/22/24 18:40> Condition: Stable <JOSE Mane Last Filed: 09/22/24 18:40> Patient Language: Mozambican <JOSE Mane Last Filed: 09/22/24 18:40> Prescriptions: No Action levetiracetam [Keppra XR] 500 mg tablet extended release 24 hr 1,500 mg PO DAILY Qty: 90 7RF benzonatate 200 mg capsule 200 mg PO BID PRN (Reason: cough) Qty: 14 0RF hydroxyzine pamoate 50 mg capsule 50 mg PO TID PRN (Reason: anxiety) Qty: 20 0RF <JOSE Mane Last Filed: 09/22/24 18:40> Follow-up/Referrals: UNKNOWN,DOCTOR [Primary Care Provider] - <Myrna Christianson PA-C - Last Filed: 09/22/24 18:40>
--- NOTE | 2024-09-21 17:20 | PC.NURSE ---
This nurse contacted [place] [facility] regarding OD. Poison control CK, mag, and potassium levels. Benzo's for use if patient becomes symptomatic. Peak is approx 6-8 hrs after ingestion. They also recommend seizure precautions.
[2024-09-21] MEDS: SODIUM CHLORIDE 0.9% IV 1,000 ML 999 ML IV CONT (17:28)
[2024-09-21 17:51] LABS: Basophils Percent Auto 0.4 % (0.2-1.2); Eosinophils Absolute Auto 0.1 K/mm3 (0-0.3); Eosinophils Percent Auto 1.8 % (0-4.4); Hematocrit 41.9 % (37.0-47.0); Hemoglobin 14.4 g/dL (12.0-15.0); Immature Granulocyte Absolute 0.02 K/mm3 (0.00-0.031); Immature Granulocyte Percent A 0.3 % (0-0.5); Lymphocytes Absolute Auto 3.78 K/mm3 (0.9-3.2); Lymphocytes Percent Auto 55.6 % (18.3-44.2); Mean Corpuscular HGB Conc 34.4 g/dl (32-36); Mean Corpuscular Hemoglobin 32.7 pg (26-34); Mean Platelet Volume 9.6 fl (7.4-10.4); Monocytes Absolute Auto 0.3 K/mm3 (0.1-0.6); Neutrophils Absolute Auto 2.5 K/mm3 (1.3-6.7); Neutrophils Percent Auto 36.9 % (45.5-73.1); Platelet Count Result 220 k/mm3 (150-375); Red Blood Count 4.41 M/mm3 (4.2-5.4); Red Cell Distribution Width 12.6 % (11.5-14.5); White Blood Count 6.8 K/mm3 (4.5-10.0)
[2024-09-21 17:53] LABS: BEDSIDEPREGUCG Negative (Negative)
[2024-09-21 17:59] LABS: Acetaminophen < 10 ug/mL (10-30); Ethanol 289 mg/dL (<10); Salicylate < 1.0 mg/dL (2-20)
[2024-09-21 18:00] LABS: Alanine Aminotransferase 55 U/L (6-35); Albumin Level 4.8 g/dL (3.5-5.1); Alkaline Phosphatase 65 U/L (38-126); Anion Gap 14 mmol/L (4-12); Aspartate Amino Transferase 71 U/L (14-36); Bilirubin,Total 0.8 mg/dL (0.2-1.3); Blood Urea Nitrogen 8 mg/dL (7-17); Calcium 9.6 mg/dL (8.4-10.2); Carbon Dioxide 20 mmol/L (22-30); Chloride 110 mmol/L (98-107); Creatine Kinase 130 U/L (30-135); Estimated CRCL calculation 92 ml/min; Estimated Glomerular Filt Rate > 60; Glucose 99 mg/dL (65-110); Magnesium 2.2 mg/dL (1.6-2.3); Potassium 3.7 mmol/L (3.4-5.0); Sodium 144 mmol/L (137-145)
[2024-09-21] MEDS: ONDANSETRON INJ 4 MG/2 ML VIAL IV PUSH (18:02)
[2024-09-21 18:10] LABS: Add Urine Microscopic? YES; Appearance Urine Clear (Clear); Bacteria Urine Rare /hpf; Bilirubin Urine Negative (Negative); Blood Urine Negative (Negative); Color Urine Yellow (Yellow); Glucose Urine UA Negative (Negative); Ketones Urine Negative (Negative); Leukocyte Esterase Ur Trace LEU/UL (Negative); Nitrate Urine Negative (Negative); Non Pathogenic Casts 0-2; Protein Urine Negative (Negative); RBC Urine 0-2 /hpf (0-2); Specific Grav Ur 1.005 (1.001-1.035); Squamous Epithelial Cell Urine Occasional /hpf (Few); Urobilinogen Urine 0.2 mg/dL (<2.0); WBC Urine 0-5 /hpf (0-3); pH Urine 7.5 (5.0-9.0)
[2024-09-21 18:20] LABS: Amphetamine Screen Urine Negative (Negative); Barbiturate Screen Urine Negative (Negative); Benzodiazepines Screen Urine Negative (Negative); Cannabinoid Screen Urine Negative (Negative); Cocaine Screen Urine Negative (Negative); Methadone Screen Urine Negative (Negative); Opiate Screen Urine Negative (Negative); Phencyclidine Screen Urine Negative (Negative)
[2024-09-21 18:33] LABS: SARS-CoV-2 RNA PCR Negative (Negative)
[2024-09-21] MEDS: IBUPROFEN IV 400 MG in SODIUM CHLORIDE 0.9% IV 100 ML 208 MG IVPB (20:25)
--- NOTE | 2024-09-21 23:18 | ECG_ITS ---
Test Date: 2024-09-21 23:20:57 Measurements Intervals [place] Rate: 74 P: 57 FL: 150 QRS: 31 QRSD: 78 T: 42 QT: 449 QTc: 500 Interpretive Statements SINUS RHYTHM PROLONGED QT INTERVAL Compared to ECG 09/21/2024 17:18:35 No significant changes Electronically Signed On 09-22-2024 15:55:49 DIRECTOR DATA PROCESSING by Yoshi Hill M.D.
[2024-09-22] VITALS (15 sets, daily range): BP systolic 120–153; BP diastolic 86–100; PULSE 71–95; RESP 13–20; TEMP 36.6–36.8; O2SAT 94–100
[2024-09-22] MEDS: LORazepam INJ (*CRX) 2 MG/ML VIAL 0.5 MG IV PUSH (00:48)
[2024-09-22 03:54] LABS: Ethanol 57 mg/dL (<10)
--- NOTE | 2024-09-22 04:37 | PC.NURSE ---
Patient medically cleared. Spoke with Analy at Crisis. ETA 90 minutes.
--- NOTE | 2024-09-22 06:11 | PC.NURSE ---
Patient being evaluated by Crisis at this time
[2024-09-22] MEDS: diazePAM INJ (*CRX) 10 MG/2 ML SYRINGE 5 MG IM (06:42)
--- NOTE | 2024-09-22 08:10 | PC.NURSE ---
Spoke with Kimber, from poison control and she states they are closing the case for patient.
[2024-09-22] MEDS: LORazepam INJ (*CRX) 2 MG/ML VIAL 1 MG IV PUSH (09:17)
[2024-09-22] MEDS: chlordiazePOXIDE (*CRX) 25 MG CAPSULE 50 MG PO (11:11)
[2024-09-22] MEDS: levETIRAcetam 1500MG/NACL100ML 1,500 MG/100 ML BAG 400 MG IVPB (11:12)
--- NOTE | 2024-09-22 11:20 | PC.NURSE ---
Per Diane, patient has been accepted to [facility] under Dr Manning.
--- NOTE | 2024-09-22 12:46 | PC.NURSE ---
attempted to call Michele for report. no answer. will attempt to call again
== END 2024-09-22 15:03 ==
PROVIDERS: Family Medicine; Emergency Provider Physician Assistant
DX: T45.0X2A Poisoning by antiallergic and antiemetic drugs, intentional self-harm, initial encounter (principal); T51.0X2A Toxic effect of ethanol, intentional self-harm, initial encounter; F32.A Depression, unspecified; Z11.52 Encounter for screening for COVID-19; Z87.891 Personal history of nicotine dependence; R94.31 Abnormal electrocardiogram [ECG] [EKG]
CPT/HCPCS: 36415; 80053; 80143; 80179; 80307; 81001; 81025; 82077; 82550; 83735; 84443; 85025; 87635; 93005; 96361; 96365; 96372; 96375; 96376; 99285; A9270; J1953; J2060; J2405; J3360; J7030